=== PATIENT | female | born 1970 | race African-American/Black ===

== ENCOUNTER → 2017-07-26 | Outpatient (CLI) | payer MEDICARE, OTHER | END | disposition home or self-care (01) | LOC: KCIC 10:34 | DX: M41.86 Other forms of scoliosis, lumbar region (principal); Z90.49 Acquired absence of other specified parts of digestive tract; M25.551 Pain in right hip; M25.552 Pain in left hip | CPT/HCPCS: 72110 ==

== ENCOUNTER 2017-07-29 07:39 | Emergency (ER) | payer MEDICARE, OTHER ==
[2017-07-29] MEDS: IV NORMAL SALINE 1000ML BAG 1,000 ML IV (08:38)
[2017-07-29] MEDS: diphenhydrAMINE 50 MG/ML VIAL IVP (08:38)
[2017-07-29] MEDS: PROCHLORPERAZINE 10 MG/2 ML VIAL. IV (08:39)
[2017-07-29] MEDS: KETOROLAC 30 MG/ML INJ. IV (08:39)
[2017-07-29 08:47] LABS: BILIRUBIN,URINE NEGATIVE (NEG); CLARITY,URINE CLEAR; COLOR,URINE YELLOW; GLUCOSE,URINE NEGATIVE (NEG); NITRITE,URINE NEGATIVE (NEG); PROTEIN,URINE NEGATIVE (NEG-TRACE); UROBILINOGEN,URINE 0.2 mg/dL (0.2 mg/dL)
[2017-07-29 08:49] LABS: NEG OBC UR NEG; POS OBC UR POS; U PREG PATIENT NEGATIVE (NEG)
[2017-07-29 08:53] LABS: BACTERIA,URINE MANY /HPF (0-FEW); RBC,URINE 0 /HPF (0-2); SQUAMOUS EPITHELIAL CELL,UR MANY /LPF; WBC,URINE 0 /HPF (0-4)
== END 2017-07-29 09:54 | disposition home or self-care (01) ==
LOC: ER 07:39
DX: G43.909 Migraine, unspecified, not intractable, without status migrainosus (principal); F41.9 Anxiety disorder, unspecified; F32.9 Major depressive disorder, single episode, unspecified; M32.9 Systemic lupus erythematosus, unspecified; F43.10 Post-traumatic stress disorder, unspecified; E66.9 Obesity, unspecified; Z90.49 Acquired absence of other specified parts of digestive tract; Z90.710 Acquired absence of both cervix and uterus; Z98.84 Bariatric surgery status; Z88.1 Allergy status to other antibiotic agents; Z88.4 Allergy status to anesthetic agent; Z91.040 Latex allergy status; Z68.31 Body mass index [BMI] 31.0-31.9, adult
CPT/HCPCS: 81001; 81025; 87086; 96361; 96374; 96375; 99284-25; J0780; J1200; J1885; J7030

== ENCOUNTER → 2017-08-22 | Outpatient (CLI) | payer MEDICARE, OTHER | END | disposition home or self-care (01) | LOC: KCIC MRI 12:28 | DX: M54.16 Radiculopathy, lumbar region (principal); M41.86 Other forms of scoliosis, lumbar region | CPT/HCPCS: 72148 ==

== ENCOUNTER → 2017-09-14 | Outpatient (CLI) | payer MEDICARE, OTHER | END | disposition home or self-care (01) | LOC: PNCL 10:53 | DX: M51.16 Intervertebral disc disorders with radiculopathy, lumbar region (principal) | CPT/HCPCS: G0463 ==

== ENCOUNTER → 2017-10-01 | Outpatient (CLI) | payer MEDICARE ==
[~2017-10-01] MED LIST: IOHEXOL 180 MG/ML 10 ML VIAL.; methylPREDNISolone ACETATE 40 MG/ML VIAL.; methylPREDNISolone ACETATE 80 MG/ML VIAL.
== END ==
LOC: PNCL 10:45
DX: M51.16 Intervertebral disc disorders with radiculopathy, lumbar region (principal); J45.909 Unspecified asthma, uncomplicated; E66.9 Obesity, unspecified; Z90.710 Acquired absence of both cervix and uterus; F32.9 Major depressive disorder, single episode, unspecified; F41.9 Anxiety disorder, unspecified; Z98.890 Other specified postprocedural states
CPT/HCPCS: 62323; J1030; J1040; Q9965

== ENCOUNTER → 2017-10-24 | Outpatient (CLI) | payer MEDICARE | END | disposition home or self-care (01) | LOC: PNCL 11:57 | DX: M51.16 Intervertebral disc disorders with radiculopathy, lumbar region (principal); Z88.4 Allergy status to anesthetic agent; Z88.1 Allergy status to other antibiotic agents; Z91.040 Latex allergy status; F41.9 Anxiety disorder, unspecified; F32.9 Major depressive disorder, single episode, unspecified; Z90.710 Acquired absence of both cervix and uterus; E66.9 Obesity, unspecified; J45.909 Unspecified asthma, uncomplicated | CPT/HCPCS: 62323; J1030; J1040; Q9965 ==

== ENCOUNTER → 2017-12-27 | Outpatient (CLI) | payer MEDICARE, OTHER | END | disposition home or self-care (01) | LOC: PNCL 08:29 | DX: M51.16 Intervertebral disc disorders with radiculopathy, lumbar region (principal) | CPT/HCPCS: 99212 ==

== ENCOUNTER → 2017-12-31 | Outpatient (CLI) | payer MEDICARE | END | disposition home or self-care (01) | LOC: KCIC MRI 11:36 | DX: M48.02 Spinal stenosis, cervical region (principal); M50.123 Cervical disc disorder at C6-C7 level with radiculopathy; Z88.1 Allergy status to other antibiotic agents; Z91.040 Latex allergy status; Z88.5 Allergy status to narcotic agent; Z98.890 Other specified postprocedural states; J45.909 Unspecified asthma, uncomplicated; E66.9 Obesity, unspecified; Z90.710 Acquired absence of both cervix and uterus; M32.9 Systemic lupus erythematosus, unspecified; F41.9 Anxiety disorder, unspecified; F32.9 Major depressive disorder, single episode, unspecified; Z83.3 Family history of diabetes mellitus | CPT/HCPCS: 72141 ==

== ENCOUNTER → 2018-01-07 | Outpatient (CLI) | payer MEDICARE, OTHER ==
[~2018-01-07] MED LIST changes: +LIDOCAINE 1% PF 2 ML VIAL.
== END | disposition home or self-care (01) ==
LOC: PNCL 08:27
DX: M50.123 Cervical disc disorder at C6-C7 level with radiculopathy (principal); M51.16 Intervertebral disc disorders with radiculopathy, lumbar region; Z88.1 Allergy status to other antibiotic agents; Z91.040 Latex allergy status; Z88.5 Allergy status to narcotic agent; Z98.890 Other specified postprocedural states; J45.909 Unspecified asthma, uncomplicated; E66.9 Obesity, unspecified; Z90.710 Acquired absence of both cervix and uterus; M32.9 Systemic lupus erythematosus, unspecified; F41.9 Anxiety disorder, unspecified; F32.9 Major depressive disorder, single episode, unspecified; Z83.3 Family history of diabetes mellitus
CPT/HCPCS: 62321; J1030; J1040; Q9965

== ENCOUNTER → 2018-03-08 | Outpatient (CLI) | payer MEDICARE, OTHER ==
[2018-03-08 12:15] LABS: ADD MAN DIFF? NO
[2018-03-08 12:23] LABS: BASO % 1 % (0-3); EOS # 0.1 x10^3/uL (0.0-0.7); EOS % 3 % (0-3); HEMOGLOBIN 12.1 g/dL (12.0-15.5); LYMPH # 1.7 x10^3/uL (1.0-4.8); LYMPH % 50 % (24-48); MEAN CORPUSCULAR HEMOGLOBIN 28 pg (25-35); MEAN CORPUSCULAR HGB CONC 33 g/dL (31-37); MEAN CORPUSCULAR VOLUME 84 fL (79-100); MONO # 0.3 x10^3/uL (0.0-1.1); MONO % 9 % (0-9); NEUT # 1.3 x10^3uL (1.8-7.7); NEUT % 37 % (31-73); PLATELET COUNT 255 x10^3/uL (140-400); RED BLOOD COUNT 4.41 x10^6/uL (3.50-5.40); WHITE BLOOD COUNT 3.5 x10^3/uL (4.0-11.0)
[2018-03-08 12:41] LABS: ALBUMIN 3.5 g/dL (3.4-5.0); ALK PHOS 152 U/L (46-116); ALT (SGPT) 43 U/L (14-59); AMYLASE 42 U/L (25-115); ANION GAP 7 (6-14); AST (SGOT) 30 U/L (15-37); BLOOD UREA NITROGEN 7 mg/dL (7-20); BUN/CREATININE RATIO 9 (6-20); CALCIUM 10.2 mg/dL (8.5-10.1); CARBON DIOXIDE 28 mmol/L (21-32); CHLORIDE 107 mmol/L (98-107); CREATININE 0.8 mg/dL (0.6-1.0); GLUCOSE 81 mg/dL (70-99); LIPASE 56 U/L (73-393); POTASSIUM 3.6 mmol/L (3.5-5.1); SODIUM 142 mmol/L (136-145); TOTAL BILIRUBIN 0.4 mg/dL (0.2-1.0)
== END | disposition home or self-care (01) ==
LOC: LAB 11:57
DX: R11.2 Nausea with vomiting, unspecified (principal); G43.809 Other migraine, not intractable, without status migrainosus; F32.9 Major depressive disorder, single episode, unspecified; G43.909 Migraine, unspecified, not intractable, without status migrainosus; J45.909 Unspecified asthma, uncomplicated; Z90.710 Acquired absence of both cervix and uterus; Z90.49 Acquired absence of other specified parts of digestive tract; Z83.3 Family history of diabetes mellitus; Z88.1 Allergy status to other antibiotic agents
CPT/HCPCS: 36415; 80053; 82150; 83690; 85025

== ENCOUNTER → 2018-03-14 | Outpatient (CLI) | payer MEDICARE, OTHER ==
[2017-07-29 09:20] VITALS: BP 119/76
[~2018-03-14] MED LIST changes: +ALPR1TAB2 PO; +ALPR1TAB5 PO; +ALPR2TAB2 PO; +ATOR20TA58 PO; +ATROVENT HFA12.9 GM IH; +DICL100G18 TP; +EPIPEN 2-P0.3 MG/0.3 IJ; +ESTR2TAB PO; +FLUT1DIS3 IH; +FLUT9.9S NS; +HYDR-2766 PO; +HYDR200T71 PO; +IBUP-1060 PO; -IOHEXOL 180 MG/ML 10 ML VIAL.; +KETO120S5 TP; +LAMO200T3 PO; +LEVO5TAB29 PO; -LIDOCAINE 1% PF 2 ML VIAL.; +METH-37 PO; +MULT1TAB52 PO; +PRED1TAB3 PO; +RANI150T2 PO; +RISP1TAB43 PO; +SUMA100T3 PO; +SUMA20SP NS; +SUMA50TA3 PO; +SUVO20TA PO; +TRET20CR13 TP; +ZOLP10TA PO; +adderall; -methylPREDNISolone ACETATE 40 MG/ML VIAL.; -methylPREDNISolone ACETATE 80 MG/ML VIAL.
[2018-03-14 15:41] LABS: BILIRUBIN,URINE SMALL (NEG); CLARITY,URINE CLEAR; COLOR,URINE YELLOW; NITRITE,URINE NEGATIVE (NEG); PROTEIN,URINE NEGATIVE (NEG-TRACE)
[2018-03-14 15:49] LABS: BACTERIA,URINE MOD /HPF (0-FEW); RBC,URINE 0 /HPF (0-2); SQUAMOUS EPITHELIAL CELL,UR MOD /LPF
== END | disposition home or self-care (01) ==
LOC: LAB 14:36
PROVIDERS: ATTEND Family Medicine
DX: R10.9 Unspecified abdominal pain (principal); J45.909 Unspecified asthma, uncomplicated; K21.9 Gastro-esophageal reflux disease without esophagitis; Z90.49 Acquired absence of other specified parts of digestive tract
CPT/HCPCS: 81001; 87086

== ENCOUNTER → 2018-04-11 | Outpatient (CLI) | payer MEDICARE, OTHER ==
[2017-07-29 09:20] VITALS: BP 119/76
[~2018-04-11] MED LIST changes: +IOHEXOL 180 MG/ML 10 ML VIAL. ONE; +LIDOCAINE 2% PF 2ML VIAL. ONE; +methylPREDNISolone ACETATE 40 MG/ML VIAL. ONE; +methylPREDNISolone ACETATE 80 MG/ML VIAL. ONE
--- NOTE | 2018-04-11 13:50 | PAIN ---
DATE OF SERVICE: 04/11/2018 PROGRESS NOT FOR PAIN CLINIC DIAGNOSES: 1. Lumbar radiculopathy with lumbar degenerative disk disease. 2. Cervical radiculopathy with cervical degenerative disk disease and cervical herniated disk. HISTORY OF PRESENT ILLNESS: The patient is a 48-year-old female who returns for followup status post lumbar epidural steroid injections and cervical injections, last seen on 01/07/2018 for cervical injection. The patient reports she did very well with this with about an 80% improvement with the neck, but the pain has now returned in her low back and right lower extremity. The patient reports it is worse with walking, standing, changing positions, increased in the posterior gluteus, posterior thigh, lateral thigh, anterior thigh, medial thigh and medial lower leg with tingling, numbness, burning, shooting and sharp pain, dull and aching across the low back as well as some pain in the neck and shoulders. The patient reports her pain is an 8 on a scale of 10 at its worst, 8 on average, 6 at its least and is an 8 today. The patient reports no loss of motor function, but still significant pain and fatigability in the right leg with standing and walking. The patient reports no new motor or sensory deficits, no new bowel or bladder incontinence or other complaints. PHYSICAL EXAMINATION: VITAL SIGNS: The patient's blood pressure 121/73, pulse 52, respirations are 18, temperature 97.6 degrees Fahrenheit. Height is 5 feet 8 inches, weighs 159 pounds. GENERAL: The patient is awake, alert, oriented, appropriate, very pleasant demeanor. HEENT: Head shows normocephalic, atraumatic. Extraocular movements are intact and symmetrical. Oral cavity: Mucous membranes are moist and pink. Dentition is intact. NECK: Shows anterior throat supple without palpable lymphadenopathy noted. Swallow reflex is symmetrical. CHEST: Shows normal on inspection. Breath sounds are clear to auscultation bilaterally. HEART: Shows S1, S2 clear. No murmurs auscultated. ABDOMEN: Soft, nontender, nondistended. No palpable organomegaly is noted. No rebound or guarding demonstrated. BACK: Shows spine grossly in the midline. Normal appearing thoracic kyphosis and lumbar lordotic curvature. Lumbar paraspinous muscle shows symmetrical on inspection, on palpation shows some moderate tenderness diffusely, but only in the low lumbar distribution without radiation. The patient has good rotational motion of lumbar spine, both laterally as well as extension and flexion without difficulty. EXTREMITIES: Lower extremities show deep tendon reflexes at 1+/4 in the patellar and tendo calcaneus tendons. Motor exam is approximately 4 on a scale of 5 on the right and 5/5 on the left with dorsiflexion, extension, quadriceps and hamstring flexion. Peripheral pulses are 1+ posterior tibia. No peripheral edema is noted. Options were discussed with the patient. The patient's old chart was reviewed as her current medication regimen updated. Current review of systems updated today as well. We will proceed with a lumbar epidural steroid injection today, it is the first in this series with fluoroscopic guidance. Risks were again discussed including, but not limited to bleeding, infection, possibility of epidural hematoma, subsequent neurologic compromise, dural puncture, headaches, spinal cord and/or nerve damage, side effects of steroid medication and poor results regarding pain control. The patient understands and wished to proceed. The patient will return to the clinic in approximately 2 weeks for followup, was counseled on return appointment, activity level and side effects to be aware of. DIAGNOSIS: Lumbar radiculopathy with lumbar degenerative disk disease. PROCEDURE: Lumbar epidural steroid injection, translaminar approach at the L4-L5 level using C-arm fluoroscopic guidance under sterile prep and drape using local anesthetic. MEDICATION INJECTED: A total of 120 mg Depo-Medrol plus 10 mL of preservative-free normal saline and 2 mL of Isovue for contrast. CONDITION AT DISCHARGE: Stable. The patient tolerated the procedure well, had no complications. JUSTINA TONG MD DR: IRIS/job JOB#: [id number] / [id number]
== END | disposition home or self-care (01) ==
LOC: PNCL 09:38
PROVIDERS: ATTEND Anesthesiology
DX: M51.16 Intervertebral disc disorders with radiculopathy, lumbar region (principal); M50.10 Cervical disc disorder with radiculopathy, unspecified cervical region; Z91.040 Latex allergy status; Z88.1 Allergy status to other antibiotic agents; Z88.6 Allergy status to analgesic agent
CPT/HCPCS: 62323; J1030; J1040; J2001; Q9965

== ENCOUNTER → 2018-05-24 | Outpatient (CLI) | payer MEDICARE, OTHER ==
[2017-07-29 09:20] VITALS: BP 119/76
[~2018-05-24] MED LIST changes: +LIDOCAINE 1% PF 2 ML VIAL. ONE; -LIDOCAINE 2% PF 2ML VIAL. ONE
--- NOTE | 2018-05-25 00:06 | PAIN ---
DATE OF SERVICE: 05/24/2018 DIAGNOSES: 1. Cervical radiculopathy with cervical degenerative disk disease and cervical herniated disk. 2. Lumbar radiculopathy with lumbar degenerative disk disease. HISTORY OF PRESENT ILLNESS: The patient is a 48-year-old female who returns for followup status post lumbar epidural steroid injection x 1 on 04/11/2018. The patient did very well with about 90% improvement in her low back and right lower extremity. The patient reports pain now is in the base of the neck and shoulders, more on the left side than the right, radiating to the left upper extremity, left posterior upper arm and forearm, into the hand as well with some numbness on the left side of the neck, shoulder as well as in the arm and hand. The patient reports it is an aching, sharp, dull, tight, shooting, stabbing, numb, constant, severe, tingling and becoming more unbearable. The patient reports pain is a 9 on a scale of 10 at its worst, 9 on average, 4 at its least, and is a 9 today. The patient reports no new motor or sensory deficits, worse with using the left upper extremity, raising her hand above her head on the left side, also with daily activities even driving a car, getting dressed, putting her arm through the sleeve of a shirt or jacket. The patient reports no new motor or sensory deficits. No new bowel or bladder incontinence or other complaints. Is awakening her from sleep, variable, at least once or twice a night. PHYSICAL EXAMINATION: VITAL SIGNS: The patient's blood pressure 121/76, pulse 61, respirations 16, temperature 97.7 degrees Fahrenheit, weight is 151 pounds. GENERAL: The patient is awake, alert, oriented, appropriate, very pleasant demeanor. HEENT: Shows normocephalic, atraumatic. Extraocular movements are intact and symmetrical. Oral cavity: Mucous membranes moist and pink. Dentition is intact. NECK: Shows anterior throat supple without palpable lymphadenopathy noted. Swallow reflex is symmetrical. CHEST: Shows normal on inspection. Breath sounds are clear to auscultation bilaterally. HEART: Shows S1, S2 clear. No murmurs auscultated. ABDOMEN: Soft, nontender, nondistended. No palpable organomegaly is noted. No rebound or guarding demonstrated. BACK: Shows spine grossly in the midline. Cervical paraspinous muscle shows symmetrical on inspection. On palpation, shows some moderate tenderness bilaterally, diffusely more on the left than the right in the superomedial trapezius and left inferior cervical paraspinous musculature, but appears symmetrical. No specific trigger points, no radiation of pain is demonstrated. No atrophy or hypertrophy is demonstrated. The patient shows good rotational motion of cervical spine, although somewhat guarded. She has full rotation past 45 degrees right and left as well as full extension, full forward flexion with slow deliberate rotation. EXTREMITIES: Upper extremities show deep tendon reflexes at 2+ in the biceps, triceps tendons. Motor exam is approximately 3-4 on a scale of 5 on the left and is 5/5 on the right. Bicep and tricep flexion 4/5 left, 5/5 right. Peripheral pulses are 2+ radial distribution. No peripheral edema is noted. Options were discussed with the patient. The patient's old chart was reviewed as is her current medication regimen updated. Current review of systems is updated today as well and we will proceed with the cervical epidural steroid injection today with fluoroscopic guidance. Risks were again discussed including, but not limited to bleeding, infection, possibility of epidural hematoma, subsequent neurological compromise, dural puncture, headaches, spinal cord and/or nerve damage, side effects of steroid medication and poor results regarding pain control. The patient understands and wished to proceed. The patient will return to the clinic in approximately 2 weeks for followup, was counseled on return appointment, activity level, and side effects to be aware of. DIAGNOSIS: Cervical radiculopathy with cervical degenerative disk disease and cervical herniated disk. PROCEDURE: Cervical epidural steroid injection, translaminar approach C6-C7 level using C-arm fluoroscopic guidance under sterile prep and drape using local anesthetic. MEDICATION INJECTED: A total of 120 mg Depo-Medrol plus 5 mL of preservative-free normal saline and 2 mL of Isovue for contrast. CONDITION AT DISCHARGE: Stable. The patient tolerated the procedure well, had no complications. JUSTINA TONG MD DR: IRIS/job JOB#: [id number] / [id number]
== END | disposition home or self-care (01) ==
LOC: PNCL 08:46
PROVIDERS: ATTEND Anesthesiology
DX: M50.123 Cervical disc disorder at C6-C7 level with radiculopathy (principal); M51.16 Intervertebral disc disorders with radiculopathy, lumbar region; Z88.6 Allergy status to analgesic agent; Z88.1 Allergy status to other antibiotic agents; Z91.040 Latex allergy status; Z79.899 Other long term (current) drug therapy
CPT/HCPCS: 62321; J1030; J1040; Q9965; 62323

== ENCOUNTER → 2018-05-27 | Outpatient (CLI) | payer MEDICARE, OTHER ==
[2017-07-29 09:20] VITALS: BP 119/76
[~2018-05-27] MED LIST changes: -IOHEXOL 180 MG/ML 10 ML VIAL. ONE; -LIDOCAINE 1% PF 2 ML VIAL. ONE; -methylPREDNISolone ACETATE 40 MG/ML VIAL. ONE; -methylPREDNISolone ACETATE 80 MG/ML VIAL. ONE
--- NOTE | 2018-05-27 12:39 | KCIC ---
CT HEAD WO CONTRAST History: Acute hearing loss of the left ear, balance problems for one month Comparison: May 01, 2015 Technique: Noncontrast CT imaging was performed of the head. Exposure: One or more of the following individualized dose reduction techniques were utilized for this examination: 1. Automated exposure control 2. Adjustment of the mA and/or kV according to patient size 3. Use of iterative reconstruction technique. Findings: No acute extra-axial or parenchymal hemorrhage is identified. There is no significant intra-axial mass effect, midline shift, or extra-axial fluid collection. The king-white differentiation of the major vascular territories is preserved. The ventricles, sulci, and cisterns are within normal limits in size and configuration. There is new partial opacification of left mastoid air cells. There is likely mild nonspecific density of the left middle air cavity. No acute calvarial abnormality is identified. There is small air-fluid level of the visualized right maxillary sinus. There have been nasoantral windows bilaterally. Sinuses are not fully evaluated. Impression: 1. No acute intracranial abnormality is identified. 2. There is new partial opacification left mastoid air cells of uncertain sterility, also nonspecific mild density of the left middle air cavity which could be seen with otitis media. 3. There is a small air-fluid level of the visualized right maxillary sinus which could be due to acute sinusitis, sinuses not fully evaluated. Electronically signed by: Zackary Chacon MD (05/27/2018 12:36 PM) [email or web address]
== END | disposition home or self-care (01) ==
LOC: KCIC CT 11:14
PROVIDERS: ATTEND Family Medicine
DX: H91.92 Unspecified hearing loss, left ear (principal)
CPT/HCPCS: 70450

== ENCOUNTER → 2018-06-14 | Outpatient (CLI) | payer MEDICARE, OTHER ==
[2017-07-29 09:20] VITALS: BP 119/76
[~2018-06-14] MED LIST changes: +IOHEXOL 180 MG/ML 10 ML VIAL. ONE; +LIDOCAINE 1% PF 2 ML VIAL. ONE; +methylPREDNISolone ACETATE 40 MG/ML VIAL. ONE; +methylPREDNISolone ACETATE 80 MG/ML VIAL. ONE
--- NOTE | 2018-06-14 20:15 | PAIN ---
DATE OF SERVICE: 06/14/2018 PROGRESS NOTE FOR PAIN CLINIC DIAGNOSES: 1. Lumbar radiculopathy with lumbar degenerative disk disease. 2. Cervical radiculopathy with cervical degenerative disk disease. HISTORY OF PRESENT ILLNESS: This patient is a 48-year-old female who returns for followup status post cervical epidural steroid injection each x 1. The patient reports she did very well with her cervical injection about 40% improvement. The main complaint is pain in the low back and right lower extremity at this time. The patient reports her pain is a 9 on a scale of 10 at its worst, 7 on average, 3 at its least and is a 7 today. The patient reports it is stabbing, sharp, tight, constant; becoming more severe, radiating to the lateral anterior thigh, anterior medial thigh, medial anterior lower leg as well as the anterior medial knee and into the foot. The patient reports it as a sharp and tight stabbing, becoming severe, more constant, aching; worse with walking, standing, changing positions; better with sitting or lying down. It awakens her from sleep but only about every 5 hours. The patient reports no new motor or sensory deficits and no new bowel or bladder incontinence. PHYSICAL EXAMINATION: VITAL SIGNS: The patient's blood pressure 110/76, pulse 78, respirations 18 and temperature 98.0 degrees Fahrenheit. Height is 5 feet 8 inches and weighs 143 pounds. GENERAL: The patient is awake, alert, oriented, appropriate and very pleasant demeanor. HEENT: Head shows normocephalic and atraumatic. Extraocular movements are intact and symmetrical. Oral cavity: Mucous membranes moist and pink. Dentition is intact. NECK: Shows anterior throat supple without palpable lymphadenopathy noted. Swallow reflex is symmetrical. CHEST: Shows normal on inspection. Breath sounds clear to auscultation bilaterally. HEART: Shows S1 and S2 clear. No murmurs auscultated. ABDOMEN: Soft, nontender and nondistended. No palpable organomegaly is noted. No rebound or guarding demonstrated. BACK: Shows spine grossly in the midline. Normal appearing thoracic kyphosis and lumbar lordotic curvature. Lumbar paraspinous muscle shows symmetrical on inspection, with palpation shows moderate tenderness but only diffusely bilaterally without radiation. Good rotational motion both laterally as well as extension and flexion without difficulty. EXTREMITIES: The patient's lower extremities show deep tendon reflexes 2+ in the patellar, 1+ tendo-calcaneus tendons. Motor exam is approximately 3-4/5 on the right dorsiflexion, extension and 5/5 on the left. Peripheral pulses are 1+ posterior tibial. No peripheral edema is noted. Options were discussed with the patient. The patient's old chart was reviewed as well as her current medication regimen updated. Current review of systems updated today as well. We will proceed with a third in the series total lumbar epidural steroid injection today with fluoroscopic guidance. Risks were again discussed including, but not limited to bleeding, infection, possibility of epidural hematoma, subsequent neurological compromise, dural puncture headache, spinal cord and/or nerve damage, side effects of steroid medication and poor results regarding pain control. The patient understands and wished to proceed. The patient will return to the clinic in approximately 2 weeks for followup, was counseled as to return appointment, activity level and side effects to be aware of. DIAGNOSIS: Lumbar radiculopathy with lumbar degenerative disk disease. PROCEDURE: Lumbar epidural steroid injection, translaminar approach, L4-L5 level using C-arm fluoroscopic guidance under sterile prep and drape using local anesthetic. MEDICATION INJECTED: A total of 120 mg Depo-Medrol plus 10 mL of preservative-free normal saline and 2 mL of Isovue for contrast. CONDITION AT DISCHARGE: Stable. The patient tolerated the procedure well and had no complications. JUSTINA TONG MD DR: IRIS/job JOB#: [id number] / [id number]
== END | disposition home or self-care (01) ==
LOC: PNCL 09:26
PROVIDERS: ATTEND Anesthesiology
DX: M51.16 Intervertebral disc disorders with radiculopathy, lumbar region (principal); M50.10 Cervical disc disorder with radiculopathy, unspecified cervical region; Z88.1 Allergy status to other antibiotic agents; Z88.6 Allergy status to analgesic agent; Z91.040 Latex allergy status
CPT/HCPCS: 62323; J1030; J1040; Q9965

== ENCOUNTER → 2018-08-09 | Outpatient (CLI) | payer MEDICARE, OTHER ==
[2017-07-29 09:20] VITALS: BP 119/76
[~2018-08-09] MED LIST changes: -HYDR-2766 PO; +HYDR-2769 PO; -IOHEXOL 180 MG/ML 10 ML VIAL. ONE; -LIDOCAINE 1% PF 2 ML VIAL. ONE; -methylPREDNISolone ACETATE 40 MG/ML VIAL. ONE; -methylPREDNISolone ACETATE 80 MG/ML VIAL. ONE
[2018-08-09 12:31] LABS: ALBUMIN 3.4 g/dL (3.4-5.0); ALBUMIN/GLOBULIN RATIO 0.8 (1.0-1.7); CALCIUM 9.9 mg/dL (8.5-10.1); CREATININE 0.7 mg/dL (0.6-1.0); GFR 108.1; POTASSIUM 4.4 mmol/L (3.5-5.1); TOTAL BILIRUBIN 0.3 mg/dL (0.2-1.0); TOTAL PROTEIN 7.5 g/dL (6.4-8.2)
--- NOTE | 2018-08-09 13:28 | RAD ---
EXAM: Sacrum and coccyx, 3 views; sacroiliac joints, 3 views. HISTORY: Pain after lifting. COMPARISON: None. FINDINGS: 3 views of the sacrum and coccyx and sacroiliac joints are obtained. There is sacralization of the right transverse process of a transitional lumbosacral segment, resulting in articulation with the underlying sacrum. This is a normal variant. There is no fracture. There is facet arthropathy at the lower lumbar levels. There are multiple pelvic phleboliths. There is mild subchondral sclerosis involving the sacroiliac joints. IMPRESSION: 1. No acute osseous finding. 2. Sacralization of the right aspect of a transitional lumbosacral segment, resulting in articulation with the sacrum. This is a normal variant. 2. Minimal degenerative change involving the sacroiliac joints. Electronically signed by: Ellen Franco MD (08/09/2018 1:23 PM) [email or web address]
== END | disposition home or self-care (01) ==
LOC: RAD 11:44
PROVIDERS: ATTEND Family Medicine
DX: M43.27 Fusion of spine, lumbosacral region (principal); M47.898 Other spondylosis, sacral and sacrococcygeal region; M12.88 Other specific arthropathies, not elsewhere classified, other specified site; I87.8 Other specified disorders of veins
CPT/HCPCS: 36415; 72202; 72220; 80053

== ENCOUNTER → 2018-09-10 | Outpatient (CLI) | payer MEDICARE ==
[2017-07-29 09:20] VITALS: BP 119/76
--- NOTE | 2018-09-10 12:49 | KCIC ---
EXAM: Abdomen and pelvis CT without contrast. HISTORY: Abnormal liver function laboratory values. Hypercalcemia. Pain. Nausea and vomiting. TECHNIQUE: Computed tomographic images of the abdomen and pelvis were obtained without contrast. *One or more of the following individualized dose reduction techniques were utilized for this examination: 1. Automated exposure control. 2. Adjustment of the mA and/or kV according to patient size. 3. Use of iterative reconstruction technique. COMPARISON: 03/15/2014. FINDINGS: Evaluation of the lower thorax is unremarkable. There is a tiny amount of anterior pericardial fluid. There are postoperative changes involving the stomach. The gallbladder is surgically absent. There is common bile duct dilatation, likely due to reservoir effect status post cholecystectomy. No suspicious hepatic lesion is seen on this exam. There is suggestion of focal dilatation of the downstream pancreatic duct, possibly due to volume averaging. No focal pancreatic lesion is seen on this noncontrast exam. The spleen is normal in size. The adrenal glands and kidneys are unremarkable. There is no appendicitis. There is moderate colonic stool. There is no evidence of bowel obstruction. There is no free air. There are multiple pelvic phleboliths. The urinary bladder is unremarkable. There is no lymphadenopathy. There is periumbilical skin thickening which may be due to edema or induration. There are degenerative changes involving the spine. The right L5 transverse process is sacralized and articulates with the underlying sacrum, a normal variant. IMPRESSION: 1. No acute abdominal or pelvic finding. Evaluation is limited due to the absence of contrast. 2. Prominent downstream pancreatic duct, possibly due to focal dilatation or volume averaging. There is also a prominent common bile duct which may be due to reservoir effect status post cholecystectomy. 3. Postoperative changes involving the stomach. 4. Moderate colonic stool. Electronically signed by: Ellen Franco MD (09/10/2018 12:46 PM) [id number]
== END | disposition home or self-care (01) ==
LOC: KCIC CT 11:12
PROVIDERS: ATTEND Family Medicine
DX: E83.52 Hypercalcemia (principal); R79.89 Other specified abnormal findings of blood chemistry; M43.26 Fusion of spine, lumbar region; Z98.890 Other specified postprocedural states; Z90.49 Acquired absence of other specified parts of digestive tract
CPT/HCPCS: 74176

== ENCOUNTER → 2018-10-31 | Outpatient (CLI) | payer OTHER, MEDICARE ==
[~2018-10-31] MED LIST changes: +IOHEXOL 180 MG/ML 10 ML VIAL. ONE; +methylPREDNISolone ACETATE 40 MG/ML VIAL. ONE; +methylPREDNISolone ACETATE 80 MG/ML VIAL. ONE
--- NOTE | 2018-11-01 00:26 | PAIN ---
DATE OF SERVICE: 10/31/2018 PROGRESS NOTE FOR PAIN CLINIC DIAGNOSIS: Lumbar radiculopathy with lumbar degenerative disk disease. HISTORY OF PRESENT ILLNESS: The patient is a 48-year-old female who returns for followup status post lumbar epidural steroid injections, most recently on 06/14/2018. The patient did very well with this but 90% improvement initially. Now the pain has returned and is down to about 10% improvement overall but still pain in the low back, right lower extremity as it was previously. The patient reports the pain is returning with activity, standing, walking, changing positions, better with sitting or lying down but awakens her from sleep about 3-4 times a night if she lays on her right side. The patient reports the pain is a 10 on scale of 10 at its worst, 7 on average, 3 at its least and is a 3 today. The patient reports it is aching, sharp, dull, tight, shooting, cramping into the right lower extremity, posterior gluteus, posterolateral thigh, lateral anterior thigh, anterior medial thigh, medial and anterior lower leg to the ankle on the right side. The patient reports it is becoming more constant, more severe and more unbearable with walking and standing. The patient reports no new motor or sensory deficits and no new bowel or bladder incontinence or other complaints. Initially, she is doing better with this as walking, doing activities at home and traveling with greater ease but the pain again returning now in the low back and right side. PHYSICAL EXAMINATION: VITAL SIGNS: The patient's blood pressure 122/81, pulse 65, respirations 18, temperature 98.4 degrees Fahrenheit. Height is 5 feet 8 inches and weighs 137 pounds. GENERAL: The patient is awake, alert, oriented, appropriate and very pleasant demeanor. HEENT: Head shows normocephalic and atraumatic. Extraocular movements are intact and symmetrical. Oral cavity: Mucous membranes moist and pink. Dentition is intact. NECK: Shows anterior throat supple without palpable lymphadenopathy noted. Swallow reflex symmetrical. CHEST: Shows normal on inspection. Breath sounds clear to auscultation bilaterally. HEART: Shows S1 and S2 clear. No murmurs auscultated. ABDOMEN: Soft, nontender and nondistended. No palpable organomegaly is noted. No rebound or guarding demonstrated. BACK: Shows spine grossly in the midline. Normal-appearing thoracic kyphosis and minor flattening of the lumbar lordotic curvature. Lumbar paraspinous muscle shows symmetrical on inspection, with palpation shows some moderate tenderness but only diffusely without radiation of the lumbar paraspinous muscles in the low lumbar distribution. The patient has good rotational motion of the lumbar spine, both laterally as well as extension and flexion without difficulty. EXTREMITIES: The patient's lower extremities show deep tendon reflexes at 2+ in the patellar, 1+ tendo-calcaneus tendons. Motor exam is approximately 4 on a scale of 5 on the right, 5/5 on the left dorsiflexion and extension. Peripheral pulses are 1+ posterior tibial. No peripheral edema is noted bilaterally. Options were discussed with the patient. The patient's old chart was reviewed as well as her current medication regimen updated. Current review of systems updated today as well. We will proceed with a lumbar epidural steroid injection today, the first in this series with fluoroscopic guidance. Risks were again discussed including, but not limited to bleeding, infection, possibility of epidural hematoma, subsequent neurological compromise, dural puncture, headaches, spinal cord and/or nerve damage, side effects of steroid medication and poor results regarding pain control. The patient understands and wished to proceed. The patient will return to the clinic in approximately 2 weeks for followup, was counseled as to return appointment, activity level and side effects to be aware of. DIAGNOSIS: Lumbar radiculopathy with lumbar degenerative disk disease. PROCEDURE: Lumbar epidural steroid injection, translaminar approach L4-L5 level using C-arm fluoroscopic guidance under sterile prep and drape using local anesthetic. MEDICATION INJECTED: A total of 120 mg Depo-Medrol plus 10 mL of preservative-free normal saline and 2 mL of contrast. CONDITION AT DISCHARGE: Stable. The patient tolerated the procedure well and had no complications. JUSTINA TONG MD DR: IRIS/job JOB#: [id number] / [id number]
== END | disposition home or self-care (01) ==
LOC: MERGE 08:39 → EDBD 08:39 → PNCL 08:39
PROVIDERS: ATTEND Anesthesiology
DX: M51.16 Intervertebral disc disorders with radiculopathy, lumbar region (principal); Z88.1 Allergy status to other antibiotic agents; Z88.6 Allergy status to analgesic agent; Z91.040 Latex allergy status
CPT/HCPCS: 62323; J1030; J1040; Q9965

== ENCOUNTER → 2018-11-27 | Outpatient (CLI) | payer OTHER, MEDICARE ==
[2017-07-29 09:20] VITALS: BP 119/76
[~2018-11-27] MED LIST changes: -IOHEXOL 180 MG/ML 10 ML VIAL. ONE; -methylPREDNISolone ACETATE 40 MG/ML VIAL. ONE; -methylPREDNISolone ACETATE 80 MG/ML VIAL. ONE
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
== END | disposition home or self-care (01) ==
LOC: KCIC MRI 11:07
PROVIDERS: ATTEND Anesthesiology
DX: M50.123 Cervical disc disorder at C6-C7 level with radiculopathy (principal); M25.78 Osteophyte, vertebrae; M47.22 Other spondylosis with radiculopathy, cervical region; Z88.1 Allergy status to other antibiotic agents; Z88.6 Allergy status to analgesic agent; Z91.040 Latex allergy status
CPT/HCPCS: 72141

== ENCOUNTER → 2018-11-27 | Outpatient (CLI) | payer OTHER, MEDICARE ==
[2017-07-29 09:20] VITALS: BP 119/76
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
== END | disposition home or self-care (01) ==
LOC: PNCL 08:40
PROVIDERS: ATTEND Anesthesiology
DX: M51.16 Intervertebral disc disorders with radiculopathy, lumbar region (principal); M50.10 Cervical disc disorder with radiculopathy, unspecified cervical region
CPT/HCPCS: G0463

== ENCOUNTER → 2019-01-03 | Outpatient (CLI) | payer MEDICARE, OTHER ==
[2017-07-29 09:20] VITALS: BP 119/76
== END | disposition home or self-care (01) ==
LOC: LAB 12:10
PROVIDERS: ATTEND Psychiatry & Neurology Neurology with Special Qualifications in Child Neurology
DX: G43.719 Chronic migraine without aura, intractable, without status migrainosus (principal); Z91.040 Latex allergy status; Z88.8 Allergy status to other drugs, medicaments and biological substances
CPT/HCPCS: 36415; 85651

== ENCOUNTER → 2019-01-15 | Outpatient (CLI) | payer OTHER, MEDICARE ==
[2017-07-29 09:20] VITALS: BP 119/76
[~2019-01-15] MED LIST changes: +IOHEXOL 180 MG/ML 10 ML VIAL. ONE; +methylPREDNISolone ACETATE 40 MG/ML VIAL. ONE; +methylPREDNISolone ACETATE 80 MG/ML VIAL. ONE
--- NOTE | 2019-01-15 19:55 | PAIN ---
DATE OF SERVICE: 01/15/2019 PROGRESS NOTE FOR PAIN CLINIC DIAGNOSES: 1. Lumbar radiculopathy with lumbar degenerative disk disease. 2. Cervical radiculopathy with cervical degenerative disk disease and cervical herniated disk. HISTORY OF PRESENT ILLNESS: The patient is a 48-year-old female who returns for followup status post cervical epidural steroid injection x 1. The patient reports about 50% improvement overall until last about 4 days, the pain began to return at the base of the neck and shoulders, worse on the right than the left, radiating to the right upper extremity, anterior biceps, lateral biceps and deltoid as well as the forearm with some numbness and tingling in the bilateral shoulders and hand on the right. The patient reports it is 10 on a scale of 10 at its worst over the past week, 10 on average, 5 at its least and is 10 today. The patient reports it is tingling, burning, shooting, cramping, dull and aching in the base of the neck and shoulder. The patient reports no new motor or sensory deficits, no new bowel or bladder incontinence. Initially, she was doing better with distance walking, doing household activities with greater ease and comfort, using her upper extremities with greater ease as well, but now the pain is returning. PHYSICAL EXAMINATION: VITAL SIGNS: The patient's blood pressure is 115/77, pulse 65, respirations 16, temperature 98.3 degrees Fahrenheit, height is 5 feet 8 inches and weight is 138 pounds. GENERAL: The patient is awake, alert, oriented, appropriate, very pleasant demeanor. HEENT: Head is normocephalic, atraumatic. Extraocular movements intact and symmetrical. Oral cavity: Mucous membranes moist and pink. Dentition is intact. NECK: Shows anterior throat supple without palpable lymphadenopathy noted. Swallow reflex symmetrical. CHEST: Shows normal with inspection. Breath sounds clear to auscultation bilaterally. HEART: Shows S1, S2 clear. ABDOMEN: Soft, nontender, nondistended. BACK: Shows spine grossly in the midline. Cervical paraspinous muscle shows symmetrical on inspection. On palpation shows some moderate tenderness diffusely in the inferior aspect of the cervical paraspinous muscles, more on the right than the left with very firm rope-like musculature in the right trapezius superiorly and laterally, but not on the left side. No radiation is demonstrated with palpation. EXTREMITIES: The patient's upper extremities show deep tendon reflexes 2+ in the biceps and triceps tendons. 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 Peripheral pulses are 2+ radial distribution. No peripheral edema is noted bilaterally. Options were discussed with the patient. The patient's old chart was reviewed, medication regimen updated, current review of systems updated today as well. We will proceed with a second in this series of cervical epidural steroid injection today with fluoroscopic guidance. Risks were again discussed including, but not limited to bleeding, infection, possibility of epidural hematoma, subsequent neurologic compromise, dural puncture, headaches, spinal cord and/or nerve damage, side effects of steroid medication and poor results regarding pain control. The patient understands and wished to proceed. The patient will return to the clinic in approximately 2 weeks for followup, was counseled on return appointment, activity level and side effects to be aware of. DIAGNOSIS: 1. Cervical radiculopathy with cervical degenerative disk disease. 2. Cervical herniated disk. PROCEDURE: Cervical epidural steroid injection, translaminar approach C6-C7 level using C-arm fluoroscopic guidance under sterile prep and drape using local anesthetic. MEDICATION INJECTED: A total of 120 mg Depo-Medrol plus 5 mL of preservative-free normal saline and 2 mL pf contrast. CONDITION AT DISCHARGE: Stable. The patient tolerated the procedure well, had no complications. JUSTINA TONG MD DR: IRIS/job JOB#: [id number] / [id number]
== END ==
LOC: PNCL 08:34
PROVIDERS: ATTEND Anesthesiology
DX: M50.123 Cervical disc disorder at C6-C7 level with radiculopathy (principal); M51.16 Intervertebral disc disorders with radiculopathy, lumbar region
CPT/HCPCS: 62321; J1030; J1040; Q9965

== ENCOUNTER → 2019-05-22 | Outpatient (CLI) | payer OTHER, MEDICARE ==
[2017-07-29 09:20] VITALS: BP 119/76
[~2019-05-22] MED LIST changes: +BUPIVACAINE MPF 0.25% 10 ML VIAL. ONE; +CYCL10TA2 PO; -IOHEXOL 180 MG/ML 10 ML VIAL. ONE; -methylPREDNISolone ACETATE 80 MG/ML VIAL. ONE
--- NOTE | 2019-05-22 12:41 | PAIN ---
DATE OF SERVICE: 05/22/2019 PROGRESS NOTE FOR PAIN CLINIC DIAGNOSES: 1. Cervical radiculopathy with cervical degenerative disk disease. 2. Lumbar radiculopathy with lumbar degenerative disk disease, lumbar herniated disc. 3. Myofascial pain. HISTORY OF PRESENT ILLNESS: The patient is a 49-year-old female who returns for followup status post cervical epidural steroid injections x 2 and lumbar injection x 1 since October of this year. The patient reports she did very well with each of these with about 75-80% improvement after the last injection. The patient reports no new motor or sensory deficits. Still some significant pain in the base of the neck and shoulders bilaterally. The patient reports it is getting worse with time, without specific radiation, noticeable with activity, standing, walking, using her upper extremities. She had some Botox injections, which were not especially helpful with the areas of the base of the neck and shoulders. The patient reports the pain now is aching and dull, tight, shooting, sharp in the bilateral upper extremities, base of the neck causing headaches, cramping, constant, severe in the shoulders and upper back as well as the back of the neck, also has pain in the low back and the right lower extremity and hip. The patient reports the pain is a 10 on a scale of 10 at its worst over the past week, 6 on average, 4 at its least and is a 6 today. The patient reports no new motor or sensory deficits, no new bowel or bladder incontinence or other complaints. PHYSICAL EXAMINATION: VITAL SIGNS: The patient's blood pressure 119/75, pulse 67, respirations are 16, temperature 97.3 degrees Fahrenheit, height is 5 feet 8 inches, weight is 154 pounds. GENERAL: The patient is awake, alert, oriented, appropriate, very pleasant demeanor. HEENT: Head shows normocephalic and atraumatic. Extraocular movements are intact and symmetrical. Oral cavity: Mucous membranes moist and pink. Dentition is intact. NECK: Shows anterior throat supple without palpable lymphadenopathy noted. Swallow reflex symmetrical. CHEST: Shows normal on inspection. Breath sounds clear bilaterally. HEART: Shows S1, S2 clear. No murmurs auscultated. ABDOMEN: Soft, nontender, nondistended. BACK: Shows spine grossly in the midline. Cervical paraspinous muscle shows symmetrical on inspection with normal cervical lordotic curvature with palpation shows some very firm rope-like musculature in the middle and lower distribution of the cervical paraspinous musculature, also into the trapezius musculature bilaterally, slightly worse on the left than the right, but present bilaterally with very firm rope-like musculature, very tender with palpation, but without specific radiation. This is true into the rhomboid musculature as well as the upper thoracic paraspinous musculature on the right greater than the left, very firm rope-like musculature as well without specific radiation, but very tender with palpation. EXTREMITIES: Upper extremities show deep tendon reflexes 2+ in the biceps and triceps tendons. Motor exam is approximately 4 on a scale of 5 on the right and 5/5 on the left with environmental lead strength, bicep and tricep flexion. Peripheral pulses are 2+ n the radial distribution. No peripheral edema is noted bilaterally. Options were discussed with the patient. The patient's old chart was reviewed as her current medication regimen updated. Current review of systems updated today as well. We will proceed with trigger point injections of the identified musculature. Risks were again discussed including, but not limited to bleeding, infection, possibility of intravascular injection sequelae, spread of local anesthetic and numbness, pneumothorax, side effects of steroid medication and poor results regarding pain control. The patient understands and wished to proceed. The patient will return to clinic in approximately 2 weeks for followup. She was counseled on return appointment, activity level and side effects to be aware of. DIAGNOSIS: Myofascial pain. PROCEDURE: Bilateral trigger point injections, bilateral cervical paraspinous musculature, bilateral trapezius musculature, bilateral thoracic paraspinous musculature under sterile prep and drape using local anesthetic. MEDICATION INJECTED: A total of 40 mg Depo-Medrol plus total of 12 mL of 0.25% bupivacaine after negative aspiration at each injection site. CONDITION AT DISCHARGE: Stable. The patient tolerated the procedure well, had no complications. JUSTINA TONG MD DR: IRIS/job JOB#: [id number] / [id number]
== END ==
LOC: PNCL 11:28
PROVIDERS: ATTEND Anesthesiology
DX: M79.18 Myalgia, other site (principal); M50.10 Cervical disc disorder with radiculopathy, unspecified cervical region; M51.16 Intervertebral disc disorders with radiculopathy, lumbar region
CPT/HCPCS: 20553; J1030; J3490

== ENCOUNTER → 2019-07-11 | Outpatient (CLI) | payer OTHER, MEDICARE ==
[2017-07-29 09:20] VITALS: BP 119/76
[~2019-07-11] MED LIST changes: +ASPI-630 PO; -BUPIVACAINE MPF 0.25% 10 ML VIAL. ONE; +IOHEXOL 180 MG/ML 10 ML VIAL. ONE; +methylPREDNISolone ACETATE 80 MG/ML VIAL. ONE
--- NOTE | 2019-07-11 12:45 | PAIN ---
DATE OF SERVICE: 07/11/2019 PROGRESS NOTE FOR PAIN CLINIC DIAGNOSES: 1. Lumbar radiculopathy with lumbar degenerative disk disease. 2. Cervical radiculopathy with cervical degenerative disk disease and cervical herniated disk. 3. Myofascial pain. HISTORY OF PRESENT ILLNESS: The patient is a 49-year-old female who returns for followup status post both cervical and lumbar epidural steroid injection as well as trigger point injections in the past, most recently trigger point injections on 05/22. The patient reports the pain is increasing now in the low back and right lower extremity significantly radiating to posterior gluteus, posterolateral thigh, lateral anterior thigh, anterior medial thigh, medial lower leg and lateral lower leg, much worse over the past few weeks without any specific injury or accident. The patient reports it is increasing with walking, standing, changing positions, is waking her from sleep at night. The patient rates it as 10 on a scale of 10 at its worst 8-9 on average and a 9 at its least and is 8 today. The patient reports no new motor or sensory deficits, no new bowel or bladder incontinence, still significant pain described as aching, burning, shooting, tight, stabbing, radiating, coming constant and more severe. PHYSICAL EXAMINATION: VITAL SIGNS: The patient's blood pressure 117/79, pulse 76, respirations 16, temperature is 98.3 degrees Fahrenheit, height is 5 feet 8 inches, weight is 154 pounds. GENERAL: The patient is awake, alert, oriented, appropriate, very pleasant demeanor. HEENT: Head shows normocephalic, atraumatic. Extraocular movements are intact and symmetrical. Oral cavity shows mucous membranes moist and pink. Dentition is intact. NECK: Shows anterior throat supple without palpable lymphadenopathy noted. Swallow reflex symmetrical. CHEST: Shows normal on inspection. Breath sounds are clear bilaterally. HEART: Shows S1, S2 clear. ABDOMEN: Soft, nontender, nondistended. BACK: Shows spine grossly in the midline. Lumbar paraspinous muscle shows symmetrical on inspection, with palpation shows some moderate tenderness diffusely bilaterally with normal appearing lordotic curvature. No trigger points, no radiation of pain. The patient has good rotational motion of lumbar spine, both laterally as well as extension and flexion without significant increase in pain. EXTREMITIES: The patient's lower extremities show deep tendon reflexes at 2+ in the patellar, 1+ tendo-calcaneus tendons. Motor exam is approximately 4 on a scale of 5 on the right, 5/5 on the left. Peripheral pulses are 1+ posterior tibia. No peripheral edema is noted. Options were discussed with the patient. The patient's old chart was reviewed as her current medication regimen updated. Current review of systems updated today as well. We will proceed with a lumbar epidural steroid injection today with fluoroscopic guidance. Risks were again discussed including, but not limited to bleeding, infection, possibility of epidural hematoma, subsequent neurological compromise, dural puncture, headaches, spinal cord and/or nerve damage, side effects of steroid medication and poor results regarding pain control. The patient understands and wished to proceed. The patient will return to clinic in approximately 2 weeks for followup. Also, wishes to have a neurosurgical evaluation. We discussed this in the past with her as she is still having significant pain in the right lower extremity and some weakness. We will get a new MRI scan of her lumbar spine as this has been more than 6 months since her last one for neurosurgical evaluation and make those arrangements. DIAGNOSES: Lumbar radiculopathy with lumbar degenerative disk disease. PROCEDURE: Lumbar epidural steroid injection, translaminar approach, L4-L5 level using C-arm fluoroscopic guidance under sterile prep and drape using local anesthetic. MEDICATION INJECTED: A total of 120 mg Depo-Medrol plus 10 mL of preservative-free normal saline and 2 mL of contrast. CONDITION AT DISCHARGE: Stable. The patient tolerated the procedure well, had no complications. JUSTINA TONG MD DR: IRIS/job JOB#: [id number] / [id number]
== END ==
LOC: PNCL 11:34
PROVIDERS: ATTEND Anesthesiology
DX: M51.16 Intervertebral disc disorders with radiculopathy, lumbar region (principal); M50.10 Cervical disc disorder with radiculopathy, unspecified cervical region; M79.18 Myalgia, other site
CPT/HCPCS: 62323; J1030; J1040; Q9965

== ENCOUNTER → 2019-07-18 | Outpatient (CLI) | payer MEDICARE, OTHER ==
[2017-07-29 09:20] VITALS: BP 119/76
[~2019-07-18] MED LIST changes: -IOHEXOL 180 MG/ML 10 ML VIAL. ONE; -methylPREDNISolone ACETATE 40 MG/ML VIAL. ONE; -methylPREDNISolone ACETATE 80 MG/ML VIAL. ONE
--- NOTE | 2019-07-18 13:55 | KCIC ---
MRI Lumbar Spine without contrast History: Right lumbar radiculopathy, chronic low back pain Technique: Multiplanar, multi sequential noncontrast MR imaging was performed of the lumbar spine. Comparison: August 22, 2017 Findings: There is some motion degradation. There again appears to be transitional anatomy. For the purpose of this report, most inferior formed although rudimentary intervertebral disc space is again considered L5-S1, assumption of 5 lumbar type vertebral bodies. Lumbar vertebral body stature is maintained. Conus terminates at T12-L1. AP alignment is within normal limits. There is mild disc desiccation L3-4 and L4-5, intervertebral disc spaces otherwise maintained. L1-L2: This level was not included on the axial images. Neural foramina and spinal canal are adequate. L2-L3: Neural foramina and spinal canal are adequate. There is minimal buckling of the ligamentum flavum. There is negligible disc osteophyte complex. L3-L4: There is minimal buckling of the ligamentum flavum. There is negligible disc osteophyte complex and bulge. Spinal canal is adequate. There is again mild neural foramina compromise bilaterally from disc osteophyte complex. L4-L5: There is a minimal bulge. There is mild buckling of the ligamentum flavum. There is mild facet degenerative change. There is again [id number] narrowing of the left neural foramen by facet and disc osteophyte complex, mild narrowing on the right. L5-S1: Spinal canal and neural foramina are adequate. Impression: 1. There is again transitional anatomy of the lumbar spine, most inferior formed although rudimentary intervertebral disc space again considered L5-S1. There is no new significant lumbar spinal stenosis. There is [id number] narrowing of the left L4-5 neural foramen, minimal narrowing on the right at L4-5 and bilaterally at L3-4 as described. Electronically signed by: Zackary Chacon MD (07/18/2019 1:52 PM) [id number]
== END ==
LOC: KCIC MRI 13:12
PROVIDERS: ATTEND Anesthesiology
DX: M54.16 Radiculopathy, lumbar region (principal); M48.061 Spinal stenosis, lumbar region without neurogenic claudication
CPT/HCPCS: 72148

== ENCOUNTER → 2019-09-01 | Outpatient (CLI) | payer MEDICARE, OTHER ==
[2017-07-29 09:20] VITALS: BP 119/76
--- NOTE | 2019-09-01 14:45 | KCIC ---
MRI of the brain without contrast 09/01/2019 INDICATION: Migraine headache. Sinus infections. Right-sided jaw numbness. COMPARISON: MRI of the brain without contrast April 15, 2015 TECHNIQUE: Multiplanar multisequence MRI imaging of the brain was performed without contrast FINDINGS: There is no evidence of acute intracranial hemorrhage. There is no evidence of acute infarct. Scattered foci of T2 hyperintensity within subcortical white matter are again noted, but grossly similar to comparison exam. No other abnormal signal changes seen. No abnormal restricted diffusion is identified. Ventricles and basilar cisterns have a normal configuration. No evidence of extra-axial fluid collection. Arterial flow voids at the skull base are unremarkable. There is circumferential mucosal thickening within the right maxillary sinus with a fluid level. Findings could represent acute sinusitis. Remaining paranasal sinuses are unremarkable. IMPRESSION: 1. Stable scattered foci of T2 hyperintensity within subcortical white matter. Findings can be seen in chronic migraine headache, or be related changes of chronic small vessel disease. 2. Mucosal thickening and fluid level within the right maxillary sinus. Correlate with clinical evidence of acute sinusitis Electronically signed by: Vinnie Mena MD (09/01/2019 2:42 PM) [id number]
== END | disposition home or self-care (01) ==
LOC: KCIC MRI 12:28
PROVIDERS: ATTEND Psychiatry & Neurology Neurology with Special Qualifications in Child Neurology
DX: G43.719 Chronic migraine without aura, intractable, without status migrainosus (principal)
CPT/HCPCS: 70551

== ENCOUNTER → 2019-09-26 | Outpatient (CLI) | payer MEDICARE, OTHER ==
[2017-07-29 09:20] VITALS: BP 119/76
[~2019-09-26] MED LIST changes: +IOHEXOL 180 MG/ML 10 ML VIAL. ONE; +methylPREDNISolone ACETATE 40 MG/ML VIAL. ONE; +methylPREDNISolone ACETATE 80 MG/ML VIAL. ONE
--- NOTE | 2019-09-26 22:25 | PAIN ---
DATE OF SERVICE: 09/26/2019 PROGRESS NOTE FOR PAIN CLINIC DIAGNOSES: 1. Lumbar radiculopathy with lumbar degenerative disk disease. 2. Cervical radiculopathy with cervical degenerative disk disease and cervical herniated disk. 3. Myofascial pain. HISTORY OF PRESENT ILLNESS: The patient is a 49-year-old female who returns for followup status post lumbar epidural steroid injection x 1, 07/11/2019. The patient reports about 75% improvement for several weeks following the injection with the pain returning in the low back, right lower extremity, posterior gluteus, posterior thigh and posterior calf. Patient reports her chief complaint, however, is neck and bilateral upper extremity and shoulder pain, worse on the right than the left. The patient reports it is a 9 on a scale of 10 at its worst over the past week, 7 on average, 3 at its least and is a 7 today, pressure, aching, sharp, dull, tight, shooting, tingling, becoming more constant and severe in the right upper extremity with activity, repetitive motions with the right arm or raising over her head with her right hand. The patient reports no loss of motor function. She is sleeping better and able to increase her activity with walking and standing with more significant decrease in pain that is after her last injection, but the neck and shoulders now becoming her main complaint. The patient reports no new motor or sensory deficits, no new bowel or bladder incontinence or other complaints. PHYSICAL EXAMINATION: VITAL SIGNS: The patient's blood pressure is 115/71, pulse 65, respirations 18, temperature 98.5 degrees Fahrenheit, weight is 164 pounds. GENERAL: The patient is awake, alert, oriented, appropriate, very pleasant demeanor. HEENT: Head shows normocephalic, atraumatic. Extraocular movements are intact and symmetrical. Oral cavity: Mucous membranes moist and pink. Dentition is intact. NECK: Shows anterior throat supple without palpable lymphadenopathy noted. Swallow reflex symmetrical. CHEST: Shows normal on inspection. Breath sounds clear to auscultation bilaterally. HEART: Shows S1, S2 clear. No murmurs auscultated. ABDOMEN: Soft, nontender, nondistended. No palpable organomegaly is noted. No rebound or guarding demonstrated. BACK: Shows spine grossly in the midline. Normal appearing thoracic kyphosis and lumbar lordotic curvature. Cervical paraspinous muscle shows symmetrical on inspection, on palpation shows some moderate tenderness diffusely bilaterally going diffusely without significant radiation. The patient has good rotational motion of cervical spine, both laterally as well as extension and flexion without significant increase in pain. The patient's upper extremities show deep tendon reflexes are 2+ in the biceps and triceps tendons. 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 Lower back shows moderate tenderness throughout the upper, middle and lower distribution of paraspinous musculature, but the paraspinous muscles are symmetrical on inspection. No radiation demonstrated good rotational both laterally as well as extension and flexion is maintained without significant pain reported. EXTREMITIES: Lower extremities show deep tendon reflexes at 2+ in the patellar, 1+ tendo-calcaneus tendons. Motor exam is approximately 4 on a scale of 5 on the right and 5/5 on the left. Peripheral pulses are 2+ radial, 1+ posterior tibial. Options were discussed with the patient. The patient's old chart was reviewed as her current medication regimen updated. Current review of systems updated today as well. We will proceed with a cervical epidural steroid injection today with fluoroscopic guidance. Risks were again discussed including, but not limited to bleeding, infection, possibility of epidural hematoma, subsequent neurological compromise, dural puncture, headaches, spinal cord and/or nerve damage, side effects of steroid medication and poor results regarding pain control. The patient understands and wished to proceed. The patient will return to clinic in approximately 2 weeks for followup. She was counseled on return appointment, activity level and side effects to be aware of. DIAGNOSES: Cervical radiculopathy with cervical degenerative disk disease and cervical herniated disk. PROCEDURE: Cervical epidural steroid injection, translaminar approach at the C6-C7 level using C-arm fluoroscopic guidance under sterile prep and drape using local anesthetic. MEDICATION INJECTED: A total of 120 mg Depo-Medrol plus 5 mL preservative-free normal saline and 2 mL of contrast. CONDITION AT DISCHARGE: Stable. The patient tolerated procedure well, had no complications. JUSTINA TONG MD DR: IRIS/job JOB#: [id number] / [id number]
== END ==
LOC: PNCL 11:35
PROVIDERS: ATTEND Anesthesiology
DX: M51.16 Intervertebral disc disorders with radiculopathy, lumbar region (principal); M50.123 Cervical disc disorder at C6-C7 level with radiculopathy; M79.18 Myalgia, other site
CPT/HCPCS: 62321; J1030; J1040; Q9965

== ENCOUNTER → 2019-12-08 | Outpatient (CLI) | payer MEDICARE, OTHER ==
[2017-07-29 09:20] VITALS: BP 119/76
[~2019-12-08] MED LIST changes: -DICL100G18 TP; +DICL100G54 TP
--- NOTE | 2019-12-08 14:10 | PAIN ---
DATE OF SERVICE: 12/08/2019 PROGRESS NOTE FOR PAIN CLINIC DIAGNOSES: 1. Lumbar radiculopathy with lumbar degenerative disk disease. 2. Cervical radiculopathy with cervical degenerative disk disease and cervical herniated disk. 3. Myofascial pain. HISTORY OF PRESENT ILLNESS: The patient is a 49-year-old female, who returns for followup status post cervical epidural steroid injections and trigger point injections. The patient did well after previous lumbar epidural steroid injection in 06/2019 and cervical epidural steroid injection in 08/2019 about 90% improved. The patient reports the pain is returning now in her low back and right lower extremity, radiating to the posterior gluteus, posterolateral thigh, lateral anterior thigh, anterior medial thigh, medial lower leg into the ankle and foot, especially the great toe. The patient reports it is worse with walking, standing, changing positions, better with sitting or lying down. It is a pinching, pulling sensation in the right posterior thigh and anterior thigh. The patient reports it is a 10 on a scale of 10 at its worst, 10 on average, 5 at its least and is a 10 today. The patient reports it is aching, sharp, tight and shooting, cramping and stabbing, becoming more constant and severe with activity. Awakens from sleep at least every 4-5 hours a night. The patient reports initially she was doing much better after her last cervical injection, but the pain in her low back and right leg now is significantly persisted. The patient reports no new motor or sensory deficits. No new bowel or bladder incontinence or other complaints. PHYSICAL EXAMINATION: VITAL SIGNS: The patient's blood pressure 112/63, pulse 60, respirations 16, temperature is 97.6 degrees Fahrenheit and height is 5 feet 8 inches, weight is 169 pounds. GENERAL: The patient is awake, alert, oriented, appropriate, has very pleasant demeanor. HEENT: Shows normocephalic, atraumatic. Extraocular movements are intact and symmetrical. Oral cavity: Mucous membranes are moist and pink. Dentition is intact. NECK: Shows anterior throat supple without palpable lymphadenopathy noted. Swallow reflex symmetrical. CHEST: Shows normal on inspection. Breath sounds are clear to auscultation bilaterally. No rales, rhonchi or wheezes auscultated. HEART: Shows S1, S2 clear. ABDOMEN: Soft, nontender, nondistended. BACK: Shows spine grossly in the midline. Cervical paraspinous muscle shows symmetrical on inspection as does thoracic and lumbar distributions. Normal cervical lordotic curvature. Slight increased thoracic kyphosis. Some minor flattening of lumbar lordotic curvature. Lumbar paraspinous muscle shows symmetrical on inspection, on palpation shows some moderate tenderness diffusely in the middle and lower distribution of the paraspinous muscles, more on the right than the left, but without trigger points, without radiation. The patient has good rotational motion of the lumbar spine, both laterally as well as extension and flexion without significant increase in pain. EXTREMITIES: Lower extremities show deep tendon reflexes, 2+ in the patellar, 1+ tendo-calcaneus tendons. Motor exam is approximately 4 on a scale of 5 on the right and 5/5 on the left. Peripheral pulses are 1+ posterior tibia. No peripheral edema bilaterally. Options were discussed with the patient. The patient's old chart was reviewed as her current medication regimen updated. Current review of systems updated today as well. We will proceed with a lumbar epidural steroid injection today with fluoroscopic guidance. Risks were discussed including but not limited to bleeding, infection, possibility of epidural hematoma, subsequent neurological compromise, dural puncture, headaches, spinal cord and/or nerve damage, side effects of steroid medication and poor results regarding pain control. The patient understands and wished to proceed. The patient will return to the clinic in approximately 2 weeks for followup, was counseled on return appointment, activity level and side effects to be aware of. DIAGNOSES: Lumbar radiculopathy with lumbar degenerative disk disease. PROCEDURE: Lumbar epidural steroid injection, translaminar approach, L4-L5 level using C-arm fluoroscopic guidance under sterile prep and drape using local anesthetic. MEDICATION INJECTED: A total of 120 mg Depo-Medrol plus 10 mL preservative-free normal saline and 2 mL of contrast. CONDITION AT DISCHARGE: Stable. The patient tolerated procedure well, had no complications. JUSTINA TONG MD DR: IRIS/job JOB#: [id number] / [id number]
== END ==
LOC: PNCL 12:51
PROVIDERS: ATTEND Anesthesiology
DX: M51.16 Intervertebral disc disorders with radiculopathy, lumbar region (principal); M79.18 Myalgia, other site; M50.10 Cervical disc disorder with radiculopathy, unspecified cervical region
CPT/HCPCS: 62323; J1030; J1040; Q9965

== ENCOUNTER → 2020-04-12 | Outpatient (CLI) | payer MEDICARE, OTHER ==
[2017-07-29 09:20] VITALS: BP 119/76
[~2020-04-12] MED LIST changes: +MULT-445 PO; -MULT1TAB52 PO; +TRAM50TA PO
--- NOTE | 2020-04-12 12:19 | PDOC ---
Progress Note - Pain Clinic Date of Service: DOS: DATE: 04/12/20 TIME: 12:12 Diagnosis: Dx: Lumbar radiculopathy with lumbar degenerative disc disease Cervical radiculopathy with cervical degenerative disc disease Myofascial pain History or Present Illness: HPI: 50-year-old female returns follow-up status post lumbar epidural steroid injection x1 December 08, 2019. Patient ports about 80% improvement for about a month and a half after the injection now the pain is returning in the low back especially in the right lower extremity. Reports its feeling "heavy" aching dull tight stabbing coming more constant severe in the back and unbearable in the legs waking her from sleep at night as well. Patient ports significant fatigability with the right lower extremity compared to the left with a been slow walking and short distances. Patient reports difficulty with driving using her right foot as well secondary to the pain. Patient ports wakes her from sleep at least once or twice a night but not every night patient reports no new motor or sensory deficits no bowel or bladder incontinence rates her pain as a 10 on scale 10 is worse over the past week 5 on average 3 its least and is a 5 today. Physical Exam: VS: Pressure is 132/84 pulse 67 respirations 16 temperature is 97.8 F height is 5 foot 8 inches weight is 165 pounds PE: PHYSICAL EXAMINATION: GENERAL: The patient is awake, alert, oriented, appropriate, very pleasant demeanor HEENT: Shows normocephalic, atraumatic. Extraocular movements are intact and symmetrical. Oral cavity: Mucous membranes moist and pink. Dentition is intact. NECK: Shows anterior throat supple without palpable lymphadenopathy noted. Swallow reflex symmetrical. CHEST: Shows normal on inspection. Breath sounds are clear bilaterally. HEART: Shows S1, S2 clear. No murmurs auscultated. ABDOMEN: Soft, nontender, nondistended. No palpable organomegaly is noted. No rebound or guarding demonstrated. BACK: Shows spine grossly in the midline. Normal-appearing cervical lordotic curvature. There is slightly increased thoracic kyphosis, some minor flattening of the lumbar lordotic curvature. Lumbar paraspinous muscles show symmetrical on inspection, on palpation shows some moderate tenderness diffusely throughout the upper, middle and lower distribution of the paraspinous muscles bilaterally and also into the lower thoracic paraspinous musculature, firm and tender, but without specific trigger points, without radiation of pain. The patient has good rotational motion of the lumbar spine, both laterally as well as extension and flexion without significant difficulty. No tenderness over the spinous processes, sacrum or sacroiliac regions. EXTREMITIES: Lower extremities show deep tendon reflexes 2+ in the patellar and tendo calcaneus tendons. Motor exam is 4 on a scale of 5 with right dorsiflexion, extension, quadriceps and hamstring flexion and 5/5 on the left. Peripheral pulses are 1+ posterior tibial. No peripheral edema is noted bilaterally. Lower extremities are warm and dry to touch, equal in color and appearance. SKIN: Shows warm and dry, good turgor. No edema. No sores, rashes or bruising throughout. Procedure: Procedure: Options were discussed with the patient. Patient's old chart was reviewed as her current medication regimen updated, and review of systems updated today as well. We will proceed with a second in a series lumbar epidural steroid injection today. Risks were discussed including but not limited to: Bleeding, infection, possibility of epidural hematoma and subsequent neurological compromise, dural puncture, headaches, spinal cord and/or nerve damage, side effects of steroid medication, and poor results regarding pain control. Patient understands wished to proceed. Patient return to clinic in approximately 2 weeks for follow-up. Patient was counseled as to activity level as well as side effects to be aware of. Medication Injected: Med Injected: Procedure is lumbar epidural steroid injection under local anesthetic using sterile prep and drape at the L4-5 level using C-arm fluoroscopic guidance in both AP and lateral views medications injected is 120 mg Depo-Medrol + 10 mL preservative-free normal saline and 2 mL contrast- condition at discharge is stable patient tolerated procedure well had no complications. Condition at Discharge: Condition at Discharge: Condition at discharge is stable patient tolerated the procedure well had no complications. JUSTINA TONG MD Apr 12, 2020 12:19
== END | disposition home or self-care (01) ==
LOC: PNCL 11:01
PROVIDERS: ATTEND Anesthesiology
DX: M51.16 Intervertebral disc disorders with radiculopathy, lumbar region (principal); M50.10 Cervical disc disorder with radiculopathy, unspecified cervical region; M79.18 Myalgia, other site; F41.9 Anxiety disorder, unspecified; Z79.82 Long term (current) use of aspirin; Z79.899 Other long term (current) drug therapy; Z83.3 Family history of diabetes mellitus; Z88.8 Allergy status to other drugs, medicaments and biological substances
CPT/HCPCS: 62323; J1030; J1040; Q9965

== ENCOUNTER → 2020-06-11 | Outpatient (CLI) | payer MEDICARE, OTHER ==
[2017-07-29 09:20] VITALS: BP 119/76
--- NOTE | 2020-06-11 12:14 | PDOC ---
Progress Note - Pain Clinic Date of Service: DOS: DATE: 06/11/20 TIME: 12:09 Diagnosis: Dx: Cervical radiculopathy with cervical degenerative disease and cervical herniated disc Lumbar radiculopathy with lumbar degenerative disc disease Myofascial pain History or Present Illness: HPI: 50-year-old female returns follow-up status post lumbar epidural steroid injection x2 most recently April 12 patient reports did very well with about 80% improvement initially now about 40% improvement greater than chief complaint today is base of neck shoulder and right upper extremity pain. Patient reports significant pain in the base the neck and the right arm right shoulder rating the shoulder blade posteriorly and into the posterior triceps into the forearm as well on the right side only this is causing headaches as well patient reports her pain is a 8 on scale 10 is worse over the past week 5 on average 3 at its least is a 5 today. Patient scribes as aching and sharp tight shooting at times in the right upper extremity cramping and stabbing base the neck and right posterior shoulder becoming constant severe and unbearable at times as well. Patient ports is awakened from sleep at least every 2-3 hours patient reports no loss of motor function but significant fatigability with the right upper extremity as well. Patient's low back is doing better but still significant myofascial pain and she is seeing her chiropractor frequently for adjustment which she feels does help. Patient reports no new motor or sensory deficits no bowel or bladder incontinence or other complaints. Physical Exam: VS: Blood pressure is 122/79 pulse 67 respirations 16 temperature 98.4 F height is 5 foot 8 inches weight is 169 pounds PE: PHYSICAL EXAMINATION: GENERAL: The patient is awake, alert, oriented, appropriate, very pleasant demeanor HEENT: Shows normocephalic, atraumatic. Extraocular movements are intact and symmetrical. NECK: Shows anterior throat supple without palpable lymphadenopathy noted. Sw allow reflex symmetrical. CHEST: Shows normal on inspection. Breath sounds are clear bilaterally no rales rhonchi or wheezes. HEART: Shows S1, and S2 are clear. No murmurs auscultated. ABDOMEN: Soft, nontender, nondistended, obese. No palpable organomegaly is noted. No rebound or guarding demonstrated. BACK: Shows spine grossly in the midline. Normal-appearing cervical lordotic curvature. Cervical paraspinous posterior shows symmetrical with inspection on palpation some moderate tenderness diffusely in the inferior aspect the cervical paraspinous muscles are more on the right than the left into the superior medial trapezius as well but without trigger points without atrophy hypertrophy and without radiation. There is slightly increased thoracic kyphosis, some minor flattening of the lumbar lordotic curvature. Lumbar paraspinous muscles show symmetrical on inspection, on palpation shows some moderate tenderness diffusely throughout the upper, middle and lower distribution of the paraspinous muscles without specific trigger points, without radiation of pain. The patient has good rotational motion of the lumbar spine, both laterally as well as extension and flexion without significant difficulty. No tenderness over the spinous processes, sacrum or sacroiliac regions. EXTREMITIES: Upper extremities show deep tendon reflexes 2+ in the biceps and triceps tendons. Motor exam is 4 on a scale of 5 with right hip, biceps and triceps flexion and 5/5 on the left. Peripheral pulses are 2+ radial. No peripheral edema is noted bilaterally. Lower extremities are warm and dry to touch, equal in color and appearance. SKIN: Shows warm and dry, good turgor. No edema. No sores, rashes or bruising throughout. Procedure: Procedure: Options were discussed with the patient. Patient chart was reviewed as her current medication regimen updated current review of systems updated today as well. We will proceed with a cervical epidural steroid injection today with fluoroscopic guidance. Risks were discussed including but not limited to: Bleeding, infection, possibility of epidural hematoma and subsequent neurological compromise, dural puncture, headaches, spinal cord and/or nerve damage, side effects of steroid medication, and poor results regarding pain control. Patient understands wished to proceed. Patient will return to clinic in approximate 2 weeks for follow-up, was counseled as to return appointment activity level and side effects to be aware of. Medication Injected: Med Injected: Procedure cervical epidural steroid injection at the C6-7 level, using local anesthetic under sterile prep and drape using C-arm fluoroscopic guidance under local anesthesia medications injected ; 120 mg Depo-Medrol + 5 mL normal saline and 2 mL contrast; condition at discharge is stable patient tolerated procedure well. and had no complications Condition at Discharge: Condition at Discharge: Condition at discharge is stable, patient tolerated the procedure well and had no complications. JUSTINA TONG MD Jun 11, 2020 12:14
== END | disposition home or self-care (01) ==
LOC: PNCL 11:32
PROVIDERS: ATTEND Anesthesiology
DX: M50.10 Cervical disc disorder with radiculopathy, unspecified cervical region (principal); M51.16 Intervertebral disc disorders with radiculopathy, lumbar region; M79.18 Myalgia, other site; J45.909 Unspecified asthma, uncomplicated; E66.9 Obesity, unspecified; F41.9 Anxiety disorder, unspecified; F32.9 Major depressive disorder, single episode, unspecified; Z90.710 Acquired absence of both cervix and uterus; Z98.890 Other specified postprocedural states; Z79.899 Other long term (current) drug therapy; Z79.82 Long term (current) use of aspirin; Z91.040 Latex allergy status; Z88.1 Allergy status to other antibiotic agents; Z83.3 Family history of diabetes mellitus
CPT/HCPCS: 62321; J1030; J1040; Q9965

== ENCOUNTER → 2020-06-18 | Outpatient (CLI) | payer MEDICARE, OTHER ==
[2017-07-29 09:20] VITALS: BP 119/76
[~2020-06-18] MED LIST changes: +BUPIVACAINE MPF 0.25% 10 ML VIAL. ONE; -IOHEXOL 180 MG/ML 10 ML VIAL. ONE; -methylPREDNISolone ACETATE 80 MG/ML VIAL. ONE
--- NOTE | 2020-06-18 08:37 | PDOC ---
Progress Note - Pain Clinic Date of Service: DOS: DATE: 06/18/20 TIME: 08:32 Diagnosis: Dx: Cervical radiculopathy with cervical degenerative disease and cervical herniated disc Lumbar radiculopathy with lumbar degenerative disc disease Myofascial pain History or Present Illness: HPI: 50-year-old female returns follow-up status post cervical epidural steroid injection on June 11, 2020. Patient put about 75% improvement and still doing well but has some significant myofascial pain the base the neck and shoulder which we discussed with her on her last visit and will treat today. Patient ports significant pain base the neck shoulder right shoulder left shoulder upper back mid back low back specially on the right side in the low back and the right hip. Patient ports the pain is a 10 on scale 10 is worse over the past week 6 on average for its least describes as aching and dull sharp burning at times and stabbing. Worse with activity worse with using the right upper extremity patient reports no new motor or sensory deficits no new bowel or bladder incontinence or other complaints. Physical Exam: VS: Blood pressure is 124/82 pulse is 80 respirations are 16 temperature is 98.3 F height is 5 foot 7 inches weight 172 pounds PE: PHYSICAL EXAMINATION: GENERAL: The patient is awake, alert, oriented, appropriate, very pleasant demeanor HEENT: Shows normocephalic, atraumatic. Extraocular movements are intact and symmetrical. NECK: Shows anterior throat supple without palpable lymphadenopathy noted. Swallow reflex symmetrical. CHEST: Shows normal on inspection. Breath sounds are clear bilaterally, no rales rhonchi or wheezes. HEART: Shows S1, S2 clear. No murmurs auscultated. ABDOMEN: Soft, nontender, nondistended, obese. No palpable organomegaly is noted. No rebound or guarding demonstrated. BACK: Shows spine grossly in the midline. Normal-appearing cervical lordotic curvature. Cervical spine shows full rotation motion both laterally as well as extension flexion without difficulty. Paraspinous muscles show symmetrical with inspection on palpation some moderate tenderness and very firm ropelike musculature more on the right than the left with throughout the upper middle lower distribution of cervical paraspinous musculature also into the right trapezius and the superior medial aspect very firm ropelike musculature consistent with trigger point areas as well approximate 2 of these areas on the left trapezius but several on the right. This is also true into the thoracic p araspinous musculature with very firm ropelike musculature bilaterally worse on the right than the left very tender very firm consistent with trigger point areas of musculature but without radiation. The patient has good rotational motion of the lumbar spine, both laterally as well as extension and flexion without significant difficulty. No tenderness over the spinous processes, s acrum or sacroiliac regions. EXTREMITIES: Lower extremities show deep tendon reflexes 2+ in the patellar and tendo calcaneus tendons. Motor exam is 4 on a scale of 5 with right dorsiflexion, extension, quadriceps and hamstring flexion and 5/5 on the left. Peripheral pulses are 1+ posterior tibial. No peripheral edema is noted bilaterally. Lower extremities are warm and dry to touch, equal in color and appearance. SKIN: Shows warm and dry, good turgor. No edema. No sores, rashes or bruising throughout. Procedure: Procedure: Options were discussed with the patient. Patient chart was reviewed as her current medication regimen updated current review of systems updated today as well. We will proceed with trigger point injections of the identified musculature. Risks were discussed including but not limited to bleeding infection possibility of intravascular injection sequelae spread to local anesthetic and numbness pneumothorax side effects steroid medication and portal scarring pain control. Patient understands wished to proceed. Patient return to clinic in approximate 4 weeks for follow-up was counseled as to return appointment activity level and side effects to be aware of. Medication Injected: Med Injected: Sterile prep and drape, trigger point identified were injected using a 25-gauge needle 1 cc of 0.25% ropivacaine and a total of 40 mg and 12 cc of 0.25% Vivacaine at each level 1 cc injected in the bilateral cervical paraspinous posterior bilateral trapezius musculature bilateral thoracic paraspinous posterior and bilateral lumbar paraspinous musculature. Negative aspiration was noted each site patient tolerated procedure well and had no complications. Condition at Discharge: Condition at Discharge: Condition at discharge is stable, patient tolerated procedure well had no compli cations. JUSTINA TONG MD Jun 18, 2020 08:37
== END | disposition home or self-care (01) ==
LOC: PNCL 08:03
PROVIDERS: ATTEND Anesthesiology
DX: M51.16 Intervertebral disc disorders with radiculopathy, lumbar region (principal); M50.10 Cervical disc disorder with radiculopathy, unspecified cervical region; M79.18 Myalgia, other site; J45.909 Unspecified asthma, uncomplicated; F41.9 Anxiety disorder, unspecified; F32.9 Major depressive disorder, single episode, unspecified; Z90.710 Acquired absence of both cervix and uterus; Z98.890 Other specified postprocedural states; Z79.899 Other long term (current) drug therapy; Z91.040 Latex allergy status; Z88.1 Allergy status to other antibiotic agents; Z83.3 Family history of diabetes mellitus
CPT/HCPCS: 20553; J1030; J3490

== ENCOUNTER → 2020-08-19 | Outpatient (CLI) | payer MEDICARE, OTHER ==
[2017-07-29 09:20] VITALS: BP 119/76
[~2020-08-19] MED LIST changes: -BUPIVACAINE MPF 0.25% 10 ML VIAL. ONE; +IOHEXOL 180 MG/ML 10 ML VIAL. ONE; +methylPREDNISolone ACETATE 80 MG/ML VIAL. ONE
--- NOTE | 2020-08-19 13:52 | PDOC4 ---
PROCEDURE Procedure Patient was consented for cervical epidural steroid injection. Risks were d iscussed including but not limited to: Bleeding, infection, possibility of epidural hematoma and subsequent neurological compromise, dural puncture, headaches, spinal cord and/or nerve damage, side effects of steroid medication, and poor results regarding pain control. Patient understands and wished to proceed. Procedure cervical epidural steroid injection at the C6-7 level, using local anesthetic under sterile prep and drape using C-arm fluoroscopic guidance under local anesthesia medications injected ; 120 mg Depo-Medrol + 5 mL normal saline and 2 mL contrast; condition at discharge is stable patient tolerated procedure well. and had no complications JUSTINA TONG MD Aug 19, 2020 13:52
--- NOTE | 2020-08-19 13:52 | PDOC ---
Progress Note - Pain Clinic Date of Service: DOS: DATE: 08/19/20 TIME: 13:47 Diagnosis: Dx: Cervical radiculopathy with cervical degenerative disease and cervical herniated disc Lumbar radiculopathy with lumbar degenerative disc disease Myofascial pain History or Present Illness: HPI: 50-year-old female returns in follow-up status post lumbar epidural steroid injections as well as cervical epidural steroid injections and trigger point injections. Patient most recently seen June 18, 2020 with trigger point patient did very well in the neck upper back mid back low back and right gluteus. Patient reports now the pain is increasing and she has been doing some increased work at home remodeling her house anterior and has increased pain in the shoulder left shoulder especially base the neck upper back radiating to the left thumb with numbness and tingling in the deltoid laterally also in the bicep tricep region and the lateral aspect of the forearm into the thumb. Patient reports the pain is a 9 on scale 10 is worse over the past week 6 on average 3 its least is a 6 today. Patient reports no loss of motor function but significant fatigability with both the upper extremites. Patient describes the pain as aching sharp tight shooting in the arm stabbing in the neck and base of the neck constant severe unbearable at times with activity. Patient reports that wakens her from sleep at least once or twice a night. Patient reports some increased fatigability of the left upper extremity but no overt motor loss. Physical Exam: VS: Blood pressure 112/70 pulse 60 respirations 16 temperature 97.9 F weight is 173 pounds PE: PHYSICAL EXAMINATION: GENERAL: The patient is awake, alert, oriented, appropriate, and very pleasant demeanor HEENT: Shows normocephalic, atraumatic. Extraocular movements are intact and symmetrical. NECK: Shows anterior throat supple without palpable lymphadenopathy noted. Swallow reflex symmetrical. CHEST: Shows normal on inspection. Breath sounds are clear bilaterally. HEART: Shows S1, S2 clear. No murmurs auscultated. ABDOMEN: Soft, nontender, nondistended, obese. No palpable organomegaly is noted. BACK: Shows spine grossly in the midline. Normal-appearing cervical lordotic curvature. Cervical paraspinous muscles show symmetrical on inspection on palpation some moderate tenderness diffusely throughout the upper middle paraspinous muscles but without significant trigger points. Patient shows good rotation motion cervical spine both laterally greater than 45 degrees right and left as well as full extension full forward flexion without significant increase in pain. There is slightly increased thoracic kyphosis, some minor flattening of the lumbar lordotic curvature. Lumbar paraspinous muscles show symmetrical on inspection, on palpation shows some moderate tenderness diffusely throughout the upper, middle and lower distribution of the paraspinous muscles, right greater than left, but without specific trigger points, without radiation of pain. The patient has good rotational motion of the lumbar spine, both laterally as well as extension and flexion without significant difficulty. No tenderness over the spinous processes, sacrum or sacroiliac regions. EXTREMITIES: Lower extremities show deep tendon reflexes 2+ in the patellar and tendo calcaneus tendons. Motor exam is 4 on a scale of 5 with right dorsiflexion, extension, quadriceps and hamstring flexion and 5/5 on the left. Peripheral pulses are 1+ posterior tibial. No peripheral edema is noted bilater ally. Lower extremities are warm and dry to touch, equal in color and appearance. Upper extremities show deep tendon reflexes 2+ in the bicep and triceps tendons motor exam is 4-5 with left asbestos remover strength bicep tricep flexion 5 out of 5 on the right. Peripheral pulses are 2+ radial no peripheral edema is noted bilaterally. SKIN: Shows warm and dry, good turgor. No edema. No sores, rashes or bruising throughout. Procedure: Procedure: Options were discussed with the patient. Patient will chart reviews her current medication regimen updated current review of systems updated today as well. Proceed with a cervical epidural steroid injection today with fluoroscopic guidance. Risks were discussed including but not limited to: Bleeding, infection, possibility of epidural hematoma and subsequent neurological compromise, dural puncture, headaches, spinal cord and/or nerve damage, side effects of steroid medication, and poor results regarding pain control. Patient understands and wished to proceed. Patient will return to clinic in approximate 2 weeks for follow-up, was counseled as to return appointment activity level and side effects to be aware of. Medication Injected: Med Injected: Procedure cervical epidural steroid injection at the C6-7 level, using local anesthetic under sterile prep and drape using C-arm fluoroscopic guidance under local anesthesia medications injected ; 120 mg Depo-Medrol + 5 mL normal saline and 2 mL contrast; condition at discharge is stable patient tolerated procedure well. and had no complications Condition at Discharge: Condition at Discharge: Condition at discharge is stable, patient tolerated the procedure well and had no complications. JUSTINA TONG MD Aug 19, 2020 13:52
== END | disposition home or self-care (01) ==
LOC: PNCL 12:54
PROVIDERS: ATTEND Anesthesiology
DX: M50.10 Cervical disc disorder with radiculopathy, unspecified cervical region (principal); M51.16 Intervertebral disc disorders with radiculopathy, lumbar region; M79.10 Myalgia, unspecified site; J45.909 Unspecified asthma, uncomplicated; E66.9 Obesity, unspecified; F41.9 Anxiety disorder, unspecified; F32.9 Major depressive disorder, single episode, unspecified; Z90.710 Acquired absence of both cervix and uterus; Z98.890 Other specified postprocedural states; Z79.899 Other long term (current) drug therapy; Z88.1 Allergy status to other antibiotic agents; Z91.040 Latex allergy status
CPT/HCPCS: 62321; J1030; J1040; Q9965

== ENCOUNTER → 2020-09-27 | Outpatient (CLI) | payer MEDICARE, OTHER ==
[2017-07-29 09:20] VITALS: BP 119/76
[~2020-09-27] MED LIST changes: +LIDOCAINE 1% PF 2 ML VIAL. ONE
--- NOTE | 2020-09-27 13:04 | PDOC ---
Progress Note - Pain Clinic Date of Service: DOS: DATE: 09/27/20 TIME: 13:00 Diagnosis: Dx: Lumbar radiculopathy with lumbar degenerative disease Cervical radiculopathy with cervical degenerative disease and cervical herniated disc Myofascial pain History or Present Illness: HPI: 50-year-old female returns follow-up status post cervical epidural steroid injection x1. Patient reports about 60% improvement initially much better but her chief complaint today is her low back and right lower extremity pain. Patient reports increasing the low back rating the right lower extremity posterior gluteus posterior lateral thigh lateral anterior thigh anteromedial thigh and medial lower leg as well as in the calf worse with walking standing changing positions better with sitting or laying down. Patient reports generally is not awaken her from sleep is better with sitting or laying but is much worse with walking and standing. Patient reports standing is the worst and rates it is a 10 on scale 10 over the past week 7 on average 4 to sleep and is a 7 today. Patient reports no new motor or sensory deficits no new bowel or bladder incontinence patient describes the pain as aching and sharp in the back tightness shooting in the right lower extremity with some tingling pain as well as a stabbing pain in the back and leg. Physical Exam: VS: Blood pressure is 122/82 pulse 67 respiration 16 temperature 98.0 F height is 5 feet 8 inches weight is 176 pounds PE: PHYSICAL EXAMINATION: GENERAL: The patient is awake, alert, oriented, appropriate, very pleasant demeanor HEENT: Shows normocephalic, atraumatic. Extraocular movements are intact and symmetrical. NECK: Shows anterior throat supple without palpable lymphadenopathy noted. Swallow reflex symmetrical. CHEST: Shows normal on inspection. Breath sounds are clear bilaterally, no rales or rhonchi. HEART: Shows S1, S2 clear. No murmurs auscultated. ABDOMEN: Soft, nontender, nondistended, obese. No palpable organomegaly is noted. BACK: Shows spine grossly in the midline. Normal-appearing cervical lordotic curvature. Cervical paraspinous muscles show symmetrical inspection, on palpation some mild tenderness only diffusely in the inferior aspect of the paraspinous musculature bilaterally slightly more on the right than the left and into the right is superior medial trapezius as well as the rhomboid distribution with some firm ropelike musculature on the right compared to the left. Neck shows full rotation motion cervical spine both laterally as well as full extension full forward flexion without significant difficulty. There is slightly increased thoracic kyphosis, some minor flattening of the lumbar lordotic curvature. Lumbar paraspinous muscles show symmetrical on inspection, on palpation shows some moderate tenderness diffusely throughout the upper, middle and lower distribution of the paraspinous muscles, but without specific trigger points, without radiation of pain. The patient has good rotational motion of the lumbar spine, both laterally as well as extension and flexion without significant difficulty. No tenderness over the spinous processes, sacrum or sacroiliac regions. EXTREMITIES: Lower extremities show deep tendon reflexes 2+ in the patellar and tendo calcaneus tendons. Motor exam is 5 on a scale of 5 with right dorsiflexion, extension, quadriceps and hamstring flexion and 4/5 on the left. Peripheral pulses are 1+ posterior tibial. No peripheral edema is noted bilaterally. Lower extremities are warm and dry to touch, equal in color and appearance. Upper extremity show deep tendon reflexes 2+ in the bicep and triceps tendons are equal motor exam is strong with approximately 5 out of 5 right and 4-5 on the left with entry level accountant strength bicep and tricep flexion. SKIN: Shows warm and dry, good turgor. No edema. No sores, rashes or bruising throughout. Procedure: Procedure: Options were discussed with the patient. Patients chart was reviewed reviewed as was her current medication regimen updated current review of systems updated today as well. We will proceed with a lumbar epidural steroid injection today with fluoroscopic guidance. Risks were discussed including but not limited to: Bleeding, infection, possibility of epidural hematoma and subsequent neurological compromise, dural puncture, headaches, spinal cord and/or nerve damage, side effects of steroid medication, and poor results regarding pain control. Patient understands and wished to proceed. Patient will return to clinic in approximate 2 weeks for follow-up, was counseled as to return appointment activity level and side effects to be aware of. Medication Injected: Med Injected: Procedure is lumbar epidural steroid injection under local anesthetic using hernán rile prep and drape at the L4-5 level using C-arm fluoroscopic guidance in both AP and lateral views medications injected is 120 mg Depo-Medrol + 10 mL preservative-free normal saline and 2 mL contrast- condition at discharge is stable patient tolerated procedure well had no complications. Condition at Discharge: Condition at Discharge: Patient discharged stable, patient tolerated procedure well had no complications. JUSTINA TONG MD Sep 27, 2020 13:04
--- NOTE | 2020-09-27 13:05 | PDOC4 ---
PROCEDURE Procedure Patient was consented for lumbar epidural steroid injection. Risks were dis cussed including but not limited to: Bleeding, infection, possibility of epidural hematoma and subsequent neurological compromise, dural puncture, headaches, spinal cord and/or nerve damage, side effects of steroid medication, and poor results regarding pain control. Patient understands and wished to proceed. Procedure is lumbar epidural steroid injection under local anesthetic using sterile prep and drape at the L4-5 level using C-arm fluoroscopic guidance in both AP and lateral views medications injected is 120 mg Depo-Medrol + 10 mL preservative-free normal saline and 2 mL contrast- condition at discharge is stable patient tolerated procedure well had no complications. JUSTINA TONG MD Sep 27, 2020 13:05
== END | disposition home or self-care (01) ==
LOC: PNCL 11:42
PROVIDERS: ATTEND Anesthesiology
DX: M51.16 Intervertebral disc disorders with radiculopathy, lumbar region (principal); M50.10 Cervical disc disorder with radiculopathy, unspecified cervical region; M79.10 Myalgia, unspecified site; J45.909 Unspecified asthma, uncomplicated; E66.9 Obesity, unspecified; F41.9 Anxiety disorder, unspecified; F32.9 Major depressive disorder, single episode, unspecified; Z90.710 Acquired absence of both cervix and uterus; Z98.890 Other specified postprocedural states; Z79.899 Other long term (current) drug therapy; Z91.040 Latex allergy status; Z88.8 Allergy status to other drugs, medicaments and biological substances
CPT/HCPCS: 62323; J1030; J1040; J3490; Q9965

== ENCOUNTER → 2020-11-17 | Outpatient (CLI) | payer MEDICARE, OTHER ==
[2017-07-29 09:20] VITALS: BP 119/76
[~2020-11-17] MED LIST changes: -IOHEXOL 180 MG/ML 10 ML VIAL. ONE; -LIDOCAINE 1% PF 2 ML VIAL. ONE; -methylPREDNISolone ACETATE 40 MG/ML VIAL. ONE; -methylPREDNISolone ACETATE 80 MG/ML VIAL. ONE
--- NOTE | 2020-11-17 14:40 | PDOC ---
Progress Note - Pain Clinic Date of Service: DOS: DATE: 11/17/20 TIME: 14:37 Diagnosis: Dx: Cervical radiculopathy with cervical degenerative disc disease and cervical herniated disc Lumbar radiculopathy lumbar degenerative disc disease Myofascial pain History or Present Illness: HPI: 50-year-old female returns for follow-up status post cervical epidural steroid traction x1 and lumbar epidural steroid injection x1. Patient reports why her cervical injection helped significantly her low back and right lower extremity still significantly painful patient reports no significant improvement after the first injection patient rates the pain is a 10 on scale 10 at all times over the past week and is a 10 today patient reports cramping aching dull sharp alternating the right posterior gluteus posterior lateral thigh anterior thigh medial thigh medial lower leg also in the posterior calf fdc across the calf and then into the anterior aspect significantly to the ankle and foot patient reports getting worse with activity standing walking she went to the emergency department once about a week ago and received a Toradol shot which helped to a moderate extent. Patient reports no loss of motor function but significant fatigability of the right lower extremity with walking. Patient has had chiropractic treatment in the past 2 weeks which is only minimally helpful as well patient reports its worse at night has been waking her from sleep occasionally but not every night. Patient reports no new bowel or bladder incontinence or other complaints. Physical Exam: VS: Blood pressure is 116/89 pulse 84 respirations 18 temperature 98.0 F height is 5 feet 8 inches weight is 179 pounds PE: PHYSICAL EXAMINATION: GENERAL: The patient is awake, alert, oriented, appropriate, very pleasant demeanor HEENT: Shows normocephalic, atraumatic. Extraocular movements are intact and symmetrical. Oral cavity: Mucous membranes moist and pink. Dentition is intact. NECK: Shows anterior throat supple without palpable lymphadenopathy noted. Swallow reflex symmetrical. CHEST: Shows normal on inspection. Breath sounds are clear bilaterally, no rales or rhonchi. HEART: Shows S1, S2 clear. No murmurs auscultated. ABDOMEN: Soft, nontender, nondistended, obese. No palpable organomegaly is noted. No rebound or guarding demonstrated. BACK: Shows spine grossly in the midline. Normal-appearing cervical lordotic curvature. There is slightly increased thoracic kyphosis, some minor flattening of the lumbar lordotic curvature. Lumbar paraspinous muscles show symmetrical on inspection, on palpation shows some moderate tenderness diffusely throughout the upper, middle and lower distribution of the paraspinous muscles without specific trigger points, without radiation of pain. The patient has good rotational motion of the lumbar spine, both laterally as well as extension and flexion without significant difficulty. EXTREMITIES: Lower extremities show deep tendon reflexes 2+ in the patellar and tendo calcaneus tendons. Motor exam is 4 on a scale of 5 with right dorsiflexion, extension, quadriceps and hamstring flexion and 5/5 on the left. Peripheral pulses are 1+ posterior tibial. No peripheral edema is noted bilaterally. Lower extremities are warm and dry to touch, equal in color and appearance. SKIN: Shows warm and dry, good turgor. No edema. No sores, rashes or bruising throughout. Procedure: Procedure: Patient discussed with the patient. Patient's old chart reviews her current me dication regimen updated current review of systems updated today as well. We will order MRI scan of the lumbar spine and the right hip as she is having significant pain in both regions and radicular fashion as well as in the groin and right hip symptoms with weightbearing. Patient will follow up after MRI scan is completed meantime will try Medrol Dosepak patient was given instru ctions well side effects aware with the medication. Medication Injected: Med Injected: None Condition at Discharge: Condition at Discharge: Condition at discharge is stable. JUSTINA TONG MD Nov 17, 2020 14:40
== END | disposition home or self-care (01) ==
LOC: PNCL 13:24
PROVIDERS: ATTEND Anesthesiology
DX: M50.10 Cervical disc disorder with radiculopathy, unspecified cervical region (principal); M51.16 Intervertebral disc disorders with radiculopathy, lumbar region; M79.18 Myalgia, other site; J45.909 Unspecified asthma, uncomplicated; E66.9 Obesity, unspecified; F41.9 Anxiety disorder, unspecified; F32.9 Major depressive disorder, single episode, unspecified; Z90.710 Acquired absence of both cervix and uterus; Z98.890 Other specified postprocedural states; Z79.899 Other long term (current) drug therapy; Z91.040 Latex allergy status; Z88.8 Allergy status to other drugs, medicaments and biological substances
CPT/HCPCS: G0463

== ENCOUNTER → 2020-11-25 | Outpatient (CLI) | payer MEDICARE, OTHER ==
[2017-07-29 09:20] VITALS: BP 119/76
--- NOTE | 2020-11-25 17:16 | KCIC ---
Examination: MRI of the right hip without contrast HISTORY: History of right hip pain COMPARISON: None available TECHNIQUE: Multiplanar, multisequence MR imaging of the right hip were performed without contrast FINDINGS: The attachment of the hamstring tendon to the ischial tuberosity, attachment of the gluteal tendons t o the greater trochanter, attachment of the iliopsoas tendon to the lesser trochanter and the attachm ent of the rectus femoris tendon to the anterior inferior iliac spine grossly appears intact. The rig ht femoral head is within the acetabulum. No acute fracture identified.Mild increased T2 signal ident ified at the gluteal tendon attachment to greater trochanter likely mild tendinosis. IMPRESSION: 1. Mild tendinosis gluteal tendons. 2. Mild degenerative changes right hip joint. Electronically signed by: Cesar Armando MD (11/25/2020 5:13 PM) [id number]
--- NOTE | 2020-11-25 17:36 | KCIC ---
MRI of the lumbar spine without contrast 11/25/2020 CLINICAL HISTORY: Low back pain which radiates down the right hip. TECHNIQUE: Unenhanced T1-weighted and T2-weighted sagittal and axial and inversion recovery sagittal images of the lumbar spine were obtained. FINDINGS: Comparison study is dated 08/22/2017. The patient appears to have transitional vertebral anatomy. For the purposes of this dictation 5 lumb ar vertebrae have been assumed. The last reasonly well-defined lumbar-appearing disc space will be re ferred to as L5-S1. There is very mild S-shaped curvature of the thoracolumbar spine. Degenerative signal changes are see n involving the L2-3, L3-4 and L4-5 discs. The marrow signal of the visualized bony structures is wit hin normal limits. The conus medullaris is normal morphology, position, and signal characteristics. On the axial images throughout the lumbar disc spaces the changes of degenerative disc disease are se en. These consist of minimal to mild generalized disc bulges, degenerative changes involving the face t joints and mild to moderate ligamentum flavum hypertrophy bilaterally. Small facet joint effusions are seen at L3-4 and L4-5. These findings do not result in significant central spinal canal stenosis at any level. Mild left neural foraminal stenosis is seen at L4-5. IMPRESSION: The changes of degenerative disc disease are seen throughout the lumbar spine. These find ings do not result in significant central spinal canal stenosis at any level. Mild left neural forami nal stenosis is seen at L4-5. Electronically signed by: Philipp Jeffers MD (11/25/2020 5:33 PM) [id number]
== END | disposition home or self-care (01) ==
LOC: KCIC MRI 14:01
PROVIDERS: ATTEND Anesthesiology
DX: M25.551 Pain in right hip (principal); M51.16 Intervertebral disc disorders with radiculopathy, lumbar region; M48.061 Spinal stenosis, lumbar region without neurogenic claudication; M16.11 Unilateral primary osteoarthritis, right hip; J45.909 Unspecified asthma, uncomplicated; E66.9 Obesity, unspecified; F41.9 Anxiety disorder, unspecified; F32.9 Major depressive disorder, single episode, unspecified; Z79.899 Other long term (current) drug therapy; Z98.890 Other specified postprocedural states; Z91.040 Latex allergy status; Z88.8 Allergy status to other drugs, medicaments and biological substances
CPT/HCPCS: 72148; 73721

== ENCOUNTER → 2020-12-15 | Outpatient (CLI) | payer MEDICARE, OTHER ==
[2017-07-29 09:20] VITALS: BP 119/76
[~2020-12-15] MED LIST changes: +BUPIVACAINE MPF 0.25% 10 ML VIAL. ONE; +methylPREDNISolone ACETATE 40 MG/ML VIAL. ONE
--- NOTE | 2020-12-15 12:03 | PDOC4 ---
PROCEDURE Procedure Patient was consented for trigger point injections. Risk were discussed inc luding but not limited to bleeding infection possibility of intravascular injection sequelae spread of local anesthetic numbness side effects steroid medication portals rating pain control. Patient understands wished to proceed. Under sterile prep and drape patient in left lateral cubitus position patient's low back and right hip and lower extremity were sterilely prepped and draped and trigger points were defined in the right lumbar paraspinous posterior right gluteus musculature right quadricep musculature and right hamstring musculature injected for total of 9 cc 0.25% ropivacaine and total of 40 mg Depo-Medrol after negative aspiration each injection site. Patient tolerated procedure well and had no complications. JUSTINA TONG MD December 15, 2020 12:03
--- NOTE | 2020-12-15 12:03 | PDOC ---
Progress Note - Pain Clinic Date of Service: DOS: DATE: 12/15/20 TIME: 11:59 Diagnosis: Dx: Cervical radiculopathy with cervical degenerative disease and cervical herniated disc Lumbar radiculopathy with lumbar degenerative disease Myofascial pain History or Present Illness: HPI: 50-year-old female returns to follow-up status post lumbar epidural steroid injection x1 and cervical epidural straight injection x1. Patient reports that the lumbar injection was not very helpful still significant pain in the low back and the right lower extremity mostly the posterior gluteus low back and into the right lateral thigh also into the anterior thigh and posterior thigh but reports is tight and spastic patient reports is a 10 on scale 10 is worse over the past week 8 on average 6 its least is 8 today patient report is tight aching stabbing in the right hip and leg worse with walking standing weightbearing also wakes her from sleep at least once every 7 hours patient reports no new motor or sensory deficit still some significant pain with her left shoulder however with difficulty moving past 45 degrees to 90 degrees with the left shoulder with weightbearing without any injury. Physical Exam: VS: Blood pressure is 144/54 pulse 67 respirations 18 temperature 98.2 F height is 5 foot 8 inches weight is 182 pounds. PE: PHYSICAL EXAMINATION: GENERAL: The patient is awake, alert, oriented, appropriate, very pleasant demeanor HEENT: Shows normocephalic, atraumatic. Extraocular movements are intact and symmetrical. Oral cavity: Mucous membranes moist and pink. Dentition is intact. NECK: Shows anterior throat supple without palpable lymphadenopathy noted. Swallow reflex symmetrical. CHEST: Shows normal on inspection. Breath sounds are clear bilaterally, no rales rhonchi wheezes auscultated. HEART: Shows S1, S2 clear. No murmurs auscultated. ABDOMEN: Soft, nontender, nondistended, obese. No palpable organomegaly is noted. No rebound or guarding demonstrated. BACK: Shows spine grossly in the midline. Normal-appearing cervical lordotic curvature. There is slightly increased thoracic kyphosis, some minor flattening of the lumbar lordotic curvature. Lumbar paraspinous muscles show symmetrical on inspection, on palpation shows some moderate tenderness diffusely throughout the upper, middle and lower distribution of the paraspinous muscles, without radiation of pain. Patient has significant tenderness in the low lumbar region only on the right with very firm ropelike musculature in the lumbar paraspinous muscles consistent with trigger point areas of musculature. No radiation is demonstrated with palpation. The patient has good rotational motion of the lumbar spine, both laterally as well as extension and flexion without significant difficulty. No tenderness over the spinous processes, sacrum or sacroiliac regions. EXTREMITIES: Lower extremities show deep tendon reflexes 2+ in the patellar and tendo calcaneus tendons. Motor exam is 4 on a scale of 5 with right dorsiflexion, extension, quadriceps and hamstring flexion and 5/5 on the left. Peripheral pulses are 1+ posterior tibial. No peripheral edema is noted kobi aterally. Lower extremities are warm and dry to touch, equal in color and appearance. Patient's right gluteus region has significant tenderness with palpation in the superior and medial aspect of the gluteus musculature self very firm ropelike musculature very consistent with trigger point areas of musculature without radiation this is true into the lateral aspect of the quadriceps on the anterior aspect of the thigh as well as the lateral aspect of the hamstring musculature very firm ropelike musculature in both these muscle groups with tenderness with palpation without radiation. Left side shows no significant tenderness or trigger points with palpation.. SKIN: Shows warm and dry, good turgor. No edema. No sores, rashes or bruising throughout. Procedure: Procedure: Options discussed with the patient. Patient chart was reviewed as her current m edication regimen updated current review of systems updated today as well. We will proceed with trigger point injections in the right lumbar paraspinous posterior right gluteus musculature right hamstring musculature and right quadriceps musculature. Risk were discussed including but not limited to bleeding infection possibility of intravascular injection sequelae spread local anesthetic numbness side effects steroid medication and poor results regarding pain control. Patient understands wished to proceed. Also will order x-ray of the left shoulder. Patient return to clinic in approximately 2 weeks for follow-up, was counseled as return appointment activity level, and side effects to be aware of. Medication Injected: Med Injected: Under sterile prep and drape patient in left lateral cubitus position patient's low back and right hip and lower extremity were sterilely prepped and draped and trigger points were defined in the right lumbar paraspinous posterior right gluteus musculature right quadricep musculature and right hamstring musculature injected for total of 9 cc 0.25% ropivacaine and total of 40 mg Depo-Medrol after negative aspiration each injection site. Patient tolerated procedure well and had no complications. Condition at Discharge: Condition at Discharge: Condition at discharge stable, patient tolerated procedure well and had no complications. JUSTINA TONG MD December 15, 2020 12:03
== END | disposition home or self-care (01) ==
LOC: PNCL 11:19
PROVIDERS: ATTEND Anesthesiology
DX: M50.10 Cervical disc disorder with radiculopathy, unspecified cervical region (principal); M51.16 Intervertebral disc disorders with radiculopathy, lumbar region; M79.18 Myalgia, other site; E66.9 Obesity, unspecified; J45.909 Unspecified asthma, uncomplicated; F41.9 Anxiety disorder, unspecified; F32.9 Major depressive disorder, single episode, unspecified; Z90.710 Acquired absence of both cervix and uterus; Z98.890 Other specified postprocedural states; Z79.899 Other long term (current) drug therapy; Z91.040 Latex allergy status; Z88.8 Allergy status to other drugs, medicaments and biological substances
CPT/HCPCS: 20553; J1030; J3490

== ENCOUNTER → 2021-01-04 | Outpatient (CLI) | payer MEDICARE, OTHER ==
[2017-07-29 09:20] VITALS: BP 119/76
[~2021-01-04] MED LIST changes: -BUPIVACAINE MPF 0.25% 10 ML VIAL. ONE; +IOHEXOL 180 MG/ML 10 ML VIAL. ONE; +methylPREDNISolone ACETATE 80 MG/ML VIAL. ONE
--- NOTE | 2021-01-04 14:03 | PDOC4 ---
PROCEDURE Procedure Patient was consented for lumbar epidural steroid injection. Risks were dis cussed including but not limited to: Bleeding, infection, possibility of epidural hematoma and subsequent neurological compromise, dural puncture, headaches, spinal cord and/or nerve damage, side effects of steroid medication, and poor results regarding pain control. Patient understands and wished to proceed. Procedure is lumbar epidural steroid injection under local anesthetic using sterile prep and drape at the L4-5 level using C-arm fluoroscopic guidance in both AP and lateral views medications injected is 120 mg Depo-Medrol +10mL preservative-free normal saline and 2 mL contrast- condition at discharge is stable patient tolerated procedure well had no complications. JUSTINA TONG MD Jan 04, 2021 14:03
--- NOTE | 2021-01-04 14:03 | PDOC ---
Progress Note - Pain Clinic Date of Service: DOS: DATE: 01/04/21 TIME: 13:58 Diagnosis: Dx: Lumbar radiculopathy with lumbar degenerative disc disease Cervical radiculopathy with cervical degenerative disc disease and cervical herniated disc Myofascial pain History or Present Illness: HPI: 50-year-old female returns for follow-up status post trigger point injections on her last visit and previous lumbar epidural steroid injection and cervical epidural steroid injection starting July of this year patient did very well with each of these procedures, most recent trigger points patient reports 100% improvement for about 4 days then the pain gradually increased but now the pain is changed and that it is in the low back and radiating the posterior gluteus lateral thigh anterior thigh medial thigh into the lower leg medial calf as well as the ankle worse with walking and standing changing positions patient reports beginning to wake her from sleep again previously it was she reports that 4 hours or so is waking up at night patient reports her pain is a 10 on scale 10 is worse over the past week 7 on average 6 its least is a 7 today patient scribes aching tightness shooting in the low back tingling cramping and stabbing in the back as well as radiating in the right lower extremity and shooting can be severe unbearable with activity. Patient reports no new motor or sensory deficits no new bowel or bladder incontinence or other complaints. Patient did have MRI scan of the lumbar spine November 25, 2020, which we again discussed with her today. Physical Exam: VS: Blood pressure is 144/81 pulse 62 respiration 16 temperature 98.1 F height is 5 foot 8 inches weight is 183 pounds PE: PHYSICAL EXAMINATION: GENERAL: The patient is awake, alert, oriented, appropriate, very pleasant demeanor HEENT: Shows normocephalic, atraumatic. Extraocular movements are intact and symmetrical. Oral cavity: Mucous membranes moist and pink. Dentition is intact. NECK: Shows anterior throat supple without palpable lymphadenopathy noted. Swallow reflex symmetrical. CHEST: Shows normal on inspection. Breath sounds are clear bilaterally. HEART: Shows S1, S2 clear. No murmurs auscultated. ABDOMEN: Soft, nontender, nondistended, obese. No palpable organomegaly is noted. BACK: Shows spine grossly in the midline. Normal-appearing cervical lordotic curvature. There is increased thoracic kyphosis, some mild flattening of the lumbar lordotic curvature. Lumbar paraspinous muscles show symmetrical on inspection, on palpation shows some moderate tenderness diffusely throughout the upper, middle and lower distribution of the paraspinous muscles, but without specific trigger points, without radiation of pain. The patient has good rotational motion of the lumbar spine, both laterally as well as extension and flexion without significant difficulty. No tenderness over the spinous processes, sacrum or sacroiliac regions. EXTREMITIES: Lower extremities show deep tendon reflexes 2+ in the patellar and tendo calcaneus tendons. Motor exam is 4 on a scale of 5 with right dorsiflexion, extension, quadriceps and hamstring flexion and 5/5 on the left. Peripheral pulses are 1+ posterior tibial. No peripheral edema is noted bilaterally. Lower extremities are warm and dry. SKIN: Shows warm and dry, good turgor. No edema. No sores, rashes or bruising throughout. Procedure: Procedure: Options discussed with the patient. Patient chart reviews her current medication regimen updated current review of systems updated today as well. We will proceed with a second lumbar epidural steroid injection today with fluoroscopic guidance. Risks were discussed including but not limited to: Bleeding, infection, possibility of epidural hematoma and subsequent neurological compromise, dural puncture, headaches, spinal cord and/or nerve damage, side effects of steroid medication, and poor results regarding pain control. Patient understands and wished to proceed. Patient will return to clinic in approximate 2 days for follow-up, as she has myofascial component of the pain as well and if necessary may explore trigger point injections as she did well with these previously as she is leaving town in 3 days. Patient was counseled as to return appointment activity level and side effects to be aware of. Medication Injected: Med Injected: Procedure is lumbar epidural steroid injection under local anesthetic using sterile prep and drape at the L4-5 level using C-arm fluoroscopic guidance in both AP and lateral views medications injected is 120 mg Depo-Medrol +10mL preservative-free normal saline and 2 mL contrast- condition at discharge is stable patient tolerated procedure well had no complications. Condition at Discharge: Condition at Discharge: Condition at discharge stable, patient alert procedure well and had no complications. JUSTINA TONG MD Jan 04, 2021 14:03
== END | disposition home or self-care (01) ==
LOC: PNCL 13:11
PROVIDERS: ATTEND Anesthesiology
DX: M51.16 Intervertebral disc disorders with radiculopathy, lumbar region (principal); M50.10 Cervical disc disorder with radiculopathy, unspecified cervical region; M79.18 Myalgia, other site; J45.909 Unspecified asthma, uncomplicated; E66.9 Obesity, unspecified; F41.9 Anxiety disorder, unspecified; F32.9 Major depressive disorder, single episode, unspecified; Z79.899 Other long term (current) drug therapy; Z98.890 Other specified postprocedural states; Z91.040 Latex allergy status; Z88.8 Allergy status to other drugs, medicaments and biological substances
CPT/HCPCS: 62323; J1030; J1040; Q9965

== ENCOUNTER → 2021-01-06 | Outpatient (CLI) | payer MEDICARE, OTHER ==
[2017-07-29 09:20] VITALS: BP 119/76
[~2021-01-06] MED LIST changes: +BUPIVACAINE MPF 0.25% 30 ML VIAL. ONE; -IOHEXOL 180 MG/ML 10 ML VIAL. ONE; -methylPREDNISolone ACETATE 80 MG/ML VIAL. ONE
--- NOTE | 2021-01-06 08:15 | PDOC ---
Progress Note - Pain Clinic Date of Service: DOS: DATE: 01/06/21 TIME: 08:10 Diagnosis: Dx: Cervical radiculopathy with cervical degenerative disc disease and cervical herniated disc Lumbar radiculopathy with lumbar degenerative disc disease Myofascial pain History or Present Illness: HPI: 50-year-old female returns follow-up status post lumbar epidural steroid injection with good results thus far patient had some trigger points we were working with the other day as well on her visit 2 days ago and those have not resolved significantly patient reports still pain in the low back and also in the bilateral shoulders right side of the low back more than the left into the right gluteus and into the right lateral and anterior quadriceps very firm ropelike muscular she is been trying to stretches out over the past few days without success in decreasing the pain. Patient has responded very well to trigger point injections however in these regions previously. Patient is getting ready to leave for about a 1 month trip should be driving and is try to get feeling better before she leaves in another day or so patient reports her pain is a 10 on scale 10 is worse over the past week 6 on average 5 its least is a 6 today patient reported aching tight stabbing radiating can be constant acro ss the low back and in the shoulders as well. Patient reports no new motor or sensory deficits the pain in the right leg is feeling better from the radiating radicular pain but the trigger point muscular pain is still persistent. Physical Exam: VS: Blood pressure 118/74 pulse 62 respirations 16 temperature 90.0 F height is 5 foot 8 inches weight is 186 pounds PE: PHYSICAL EXAMINATION: GENERAL: The patient is awake, alert, oriented, appropriate, very pleasant in demeanor HEENT: Shows normocephalic, atraumatic. Extraocular movements are intact and symmetrical. NECK: Shows anterior throat supple without palpable lymphadenopathy noted. Swallow reflex symmetrical. CHEST: Shows normal on inspection. Breath sounds are clear bilaterally. HEART: Shows S1, S2 clear. No murmurs auscultated. ABDOMEN: Soft, nontender, nondistended. No palpable organomegaly is noted. No rebound or guarding demonstrated. BACK: Shows spine grossly in the midline. Normal-appearing cervical lordotic curvature. Cervical spine shows full rotation motion both laterally as well as full extension full forward flexion without significant difficulty. Patient has significant tenderness in the inferior aspect of the cervical paraspinous posterior and into the superior medial trapezius bilaterally very firm ropelike musculature worse on the right than the left and present bilaterally very tender consistent with areas of trigger point musculature but without radiation. Right supraspinatus and infraspinatus shows significant tenderness and very firm ropelike musculature as well as the medial rhomboid on the right side but without radiation as well left side is nontender and without trigger points on the left. There is increased thoracic kyphosis, some flattening of the lumbar lordotic curvature. Lumbar paraspinous muscles show symmetrical on inspection, on palpation shows some moderate tenderness diffusely throughout the upper, middle and lower distribution of the paraspinous muscles bilaterally and also into the lower thoracic paraspinous musculature, with very firm ropelike musculature in the right sided mid and low lumbar distribution consistent with areas of trigger point musculature but without radiation of pain. The patient has good rotational motion of the lumbar spine, both laterally as well as extension and flexion without significant difficulty. No tenderness over the spinous processes, sacrum or sacroiliac regions. EXTREMITIES: Lower extremities show deep tendon reflexes 1+ in the patellar and tendo calcaneus tendons. Motor exam is 4 on a scale of 5 with right dorsiflexion, extension, quadriceps and hamstring flexion and 4/5 on the left. Peripheral pulses are 1+ posterior tibial. No peripheral edema is noted bilaterally. Lower extremities are warm and dry. Patient has significant tenderness over the superior aspect of the right quadriceps and the medial and lateral distribution with very firm ropelike musculature consistent with trigger point areas in the quadricep itself as well as into the right gluteus on the right only with very firm ropelike musculature consistent with trigger point areas but without specific radiation left side is nontender. SKIN: Shows warm and dry, good turgor. No edema. No sores, rashes or bruising throughout. Procedure: Procedure: Options discussed with the patient. Patient chart was reviewed as her current medication regimen updated current review of systems updated today as well. We will proceed with trigger point injections of the identified musculature. Risk were discussed including but not limited to bleeding infection possibility of intravascular injection and sequelae spread local anesthetic numbness pneumothorax side effects steroid medication and poor results regarding pain control. Patient understands wished to proceed. Patient return to the clinic in approximately 4 weeks for follow-up, was counseled as to return appointment activity level and side effects to be aware of. Medication Injected: Med Injected: Under sterile prep and drape patient in left lateral decubitus position trapezius musculature was sterilely prepped and draped as was the right rhomboid right supra and infraspinatus musculature right lumbar paraspinous musculature right gluteus musculature right quadriceps musculature and identified trigger points were injected using 25-gauge needle total of 12 cc 0.25% bupivacaine and total of 40 mg Depo-Medrol after negative aspiration at each injection site. Patient tolerated procedure well and had no complications. Condition at Discharge: Condition at Discharge: Condition at discharge is stable, patient alert the procedure well and had no complications. JUSTINA TONG MD Jan 06, 2021 08:15
--- NOTE | 2021-01-06 08:16 | PDOC4 ---
PROCEDURE Procedure Patient was consented for trigger point injections. Risk were discussed inc luding but not limited to bleeding infection possibility of intravascular injection sequelae pneumothorax side effects steroid medication, and poor results regarding pain control. Patient understands wished to proceed. Under sterile prep and drape patient in left lateral decubitus position trapezius musculature was sterilely prepped and draped as was the right rhomboid right supra and infraspinatus musculature right lumbar paraspinous musculature right gluteus musculature right quadriceps musculature and identified trigger points were injected using 25-gauge needle total of 12 cc 0.25% bupivacaine and total of 40 mg Depo-Medrol after negative aspiration at each injection site. Patient tolerated procedure well and had no complications. JUSTINA TONG MD Jan 06, 2021 08:16
== END | disposition home or self-care (01) ==
LOC: PNCL 07:41
PROVIDERS: ATTEND Anesthesiology
DX: M50.10 Cervical disc disorder with radiculopathy, unspecified cervical region (principal); M51.16 Intervertebral disc disorders with radiculopathy, lumbar region; M79.18 Myalgia, other site; J45.909 Unspecified asthma, uncomplicated; E66.9 Obesity, unspecified; F41.9 Anxiety disorder, unspecified; F32.9 Major depressive disorder, single episode, unspecified; Z90.710 Acquired absence of both cervix and uterus; Z98.890 Other specified postprocedural states; Z79.899 Other long term (current) drug therapy; Z91.040 Latex allergy status; Z88.8 Allergy status to other drugs, medicaments and biological substances
CPT/HCPCS: 20553; J1030; J3490

== ENCOUNTER → 2021-02-08 | Outpatient (CLI) | payer MEDICARE, OTHER ==
[2017-07-29 09:20] VITALS: BP 119/76
[~2021-02-08] MED LIST changes: +BUPIVACAINE MPF 0.25% 10 ML VIAL. ONE; -BUPIVACAINE MPF 0.25% 30 ML VIAL. ONE
--- NOTE | 2021-02-08 15:59 | PDOC ---
Progress Note - Pain Clinic Date of Service: DOS: DATE: 02/08/21 TIME: 15:53 Diagnosis: Dx: Lumbar radiculopathy with lumbar degenerative disc disease Cervical radiculopathy cervical degenerative disease and cervical herniated disc Myofascial pain History or Present Illness: HPI: 50-year-old female returns for follow-up status post trigger point injections as well as previous epidural steroid injections. Patient most recently had trigger point injections January 06, 2021 did very well reports about 90% improvement in the low back and right hip patient reports the pain is returning now after she fell down some stairs had a new injury while she was visiting her sister in [place]. Patient reports she fell down the last 2 or 3 stairs on her sister staircase with significant pain in the low back radiating now into the bilateral lower extremities worse on the right than the left but significant tightness and spastic musculature in the low back as well as into the hips and the bilateral lower extremities. Patient reports is aching and sharp tight shooting tingling burning cramping stabbing radiating can be constant severe and unbearable rated as a 10 on scale 10 is worse over the past week 7 on average for its least is a 7 today. Patient reports muscle spasms in the hips legs low back as well as into the right anterior quadriceps and some in the right calf as well. Patient reports no bowel or bladder incontinence no new motor or sensory loss. Physical Exam: VS: Blood pressure is 137/75 pulse 63 respirations are 18 temperature is 98.1 F height is 5 feet 8 inches weight is 198 pounds PE: PHYSICAL EXAMINATION: GENERAL: The patient is awake, alert, oriented, appropriate, [facility], patient accompanied by her daughter. HEENT: Shows normocephalic, atraumatic. Extraocular movements are intact and symmetrical. NECK: Shows anterior throat supple without palpable lymphadenopathy noted. Swallow reflex symmetrical. CHEST: Shows normal on inspection. Breath sounds are clear, no rales or rhonchi auscultated bilaterally. HEART: Shows S1, S2 clear. No murmurs auscultated. ABDOMEN: Soft, nontender, nondistended, obese. BACK: Shows spine grossly in the midline. Normal-appearing cervical lordotic curvature. There is slightly increased thoracic kyphosis, some minor flattening of the lumbar lordotic curvature. Lumbar paraspinous muscles show symmetrical on inspection, on palpation shows some moderate tenderness diffusely throughout the upper, middle and lower distribution of the paraspinous muscles. Patient has significant tenderness in the mid and low lumbar distribution the paraspinous muscles very firm ropelike musculature consistent with trigger point areas of musculature bilaterally without specific radiation. Patient also has significant tenderness over the superior medial and lateral gluteus near the posterior superior iliac spine and the lateral to this as well with very firm ropelike musculature bilaterally into the superior medial gluteus bilaterally with very firm ropelike musculature very tender with palpation without specific radiation on palpation. The patient has good rotational motion of the lumbar spine, both laterally as well as extension and flexion without significant difficulty. No tenderness over the spinous processes, sacrum or sacroiliac regions. EXTREMITIES: Lower extremities show deep tendon reflexes 2+ in the patellar and tendo calcaneus tendons. Motor exam is 4 on a scale of 5 with right dorsiflexion, extension, quadriceps and hamstring flexion and 4/5 on the left. Peripheral pulses are 1 posterior tibial. No peripheral edema is noted bilaterally. Lower extremities are warm and dry to touch, equal in color and appearance. Patient shows significant tenderness with palpation over the vastus medialis musculature in the mid and upper thighs bilaterally but without radiation but very firm ropelike muscular consistent with areas of trigger point musculature. This is doing the vastus lateralis as well more superiorly but bilaterally very firm ropelike muscular consistent with areas of trigger point musculature. Again no radiation is demonstrated. SKIN: Shows warm and dry, good turgor. No edema. No sores, rashes or bruising throughout. Procedure: Procedure: Options were discussed with the patient. Patient chart was reviewed as her current medication regimen updated current review of systems updated today as well. We will proceed with trigger point areas of the identified musculature. Risk were discussed including but not limited to bleeding infection possibility of intravascular injection and sequelae spread of local anesthetic numbness side effects of steroid education and poor response regarding pain control. Patient understands wished to proceed. Patient return to clinic in approximately 2 weeks for follow-up, was counseled as to return appointment activity level and side effects to be aware of. Medication Injected: Med Injected: Under sterile prep and drape patient's trigger point areas were identified in the bilateral lumbar paraspinous posterior, bilateral gluteus musculature, bilateral hamstring musculature, bilateral quadriceps musculature. Using 25- gauge needle and after negative aspiration each injection site total of 14 cc 0.25% bupivacaine was injected and total of 40 mg Depo-Medrol. Patient tolerated procedure well had no complications. Patient had some transient numbness over the top of the left foot immediately postoperative, which cleared prior to discharge. Condition at Discharge: Condition at Discharge: Condition discharge stable, patient alert the procedure well had no complications. JUSTINA TONG MD Feb 08, 2021 15:59
--- NOTE | 2021-02-08 16:02 | PDOC4 ---
Procedure Note: Procedure Note: Patient was consented for trigger point injections. Risk were discussed including but not limited to bleeding infection possibility of intravascular injection sequelae spread local episodic numbness side effects of steroid medication portals regarding pain control. Patient understands wished to proceed. Under sterile prep and drape patient in supine position initially and then prone position, trigger points were identified in the bilateral lumbar paraspinous posterior bilateral gluteus musculature bilateral quadriceps muscular and bilateral hamstring musculature. Using sterile prep and drape using 25-gauge needle total of 14 cc of 0.25% bupivacaine was injected after negative aspi ration and total of 40 mg Depo-Medrol. Patient tolerated procedure well and had no complications. JUSTINA TONG MD Feb 08, 2021 16:02
== END | disposition home or self-care (01) ==
LOC: PNCL 14:26
PROVIDERS: ATTEND Anesthesiology
DX: M51.16 Intervertebral disc disorders with radiculopathy, lumbar region (principal); M50.10 Cervical disc disorder with radiculopathy, unspecified cervical region; M79.18 Myalgia, other site; E66.9 Obesity, unspecified; F41.9 Anxiety disorder, unspecified; F32.9 Major depressive disorder, single episode, unspecified; Z90.710 Acquired absence of both cervix and uterus; Z98.890 Other specified postprocedural states; Z79.899 Other long term (current) drug therapy; Z91.040 Latex allergy status; Z88.8 Allergy status to other drugs, medicaments and biological substances
CPT/HCPCS: 20553; J1030; J3490

== ENCOUNTER → 2021-05-27 | Outpatient (CLI) | payer MEDICARE, OTHER ==
[2017-07-29 09:20] VITALS: BP 119/76
[~2021-05-27] MED LIST changes: -ALPR1TAB5 PO; +ALPR1TAB9 PO; -BUPIVACAINE MPF 0.25% 10 ML VIAL. ONE; +CYCL10TA19 PO; -CYCL10TA2 PO; -ESTR2TAB PO; +ESTR2TAB3 PO; +IOHEXOL 180 MG/ML 10 ML VIAL. ONE; +methylPREDNISolone ACETATE 80 MG/ML VIAL. ONE
--- NOTE | 2021-05-27 09:15 | PDOC ---
Progress Note - Pain Clinic Date of Service: DOS: DATE: 05/27/21 TIME: 09:11 Diagnosis: Dx: Cervical radiculopathy with cervical degenerative disease and cervical herniated disc Lumbar radiculopathy with lumbar degenerative disc disease Myofascial pain History or Present Illness: HPI: 51-year-old female returns for follow-up status post trigger point injections last seen January 2021. Patient reports she did very well with this with about 75% improvement but the main complaint today is pain in the low back and radiating down the right lower extremity posterior gluteus posterior lateral thigh lateral anterior thigh anteromedial thigh medial lower leg to the ankle and the foot on the right side with some weakness and fatigue with walking. Patient ports aching sharp dull tight shooting in the back cramping stabbing can be constant severe unbearable at times patient reports is worse with walking standing changing positions better with sitting or laying down generally does not awaken her from sleep but most recently it has over the past few weeks. Patient rates her pain is a 10 on scale 10 is worse over the past week 8-9 on average for its least is an 8 today. Patient reports no loss of motor function no bowel or bladder incontinence. Physical Exam: VS: Blood pressure is 164 pulse 69 respirations are 16 temperature is 97.6 F height is 5 foot 8 inches weight is 189 pounds PE: PHYSICAL EXAMINATION: GENERAL: The patient is awake, alert, oriented, appropriate, very pleasant in demeanor HEENT: Shows normocephalic, atraumatic. Extraocular movements are intact and symmetrical. Oral cavity: Mucous membranes moist and pink. Dentition is intact. NECK: Shows anterior throat supple without palpable lymphadenopathy noted. Swallow reflex symmetrical. CHEST: Shows normal on inspection. Breath sounds are clear bilaterally, distant but no rales or. HEART: Shows S1, S2 clear. No murmurs auscultated. ABDOMEN: Soft, nontender, nondistended, obese. No palpable organomegaly is noted. BACK: Shows spine grossly in the midline. Normal-appearing cervical lordotic curvature. There is slightly increased thoracic kyphosis, some minor flattening of the lumbar lordotic curvature. Lumbar paraspinous muscles show symmetrical on inspection, on palpation shows some moderate tenderness diffusely throughout the upper, middle and lower distribution of the paraspinous muscles, but without specific trigger points, without radiation of pain. The patient has good rotational motion of the lumbar spine, both laterally as well as extension and flexion without significant difficulty. EXTREMITIES: Lower extremities show deep tendon reflexes 2+ in the patellar and tendo calcaneus tendons. Motor exam is 4 on a scale of 5 with right dorsiflexion, extension, quadriceps and hamstring flexion and 4/5 on the left. Peripheral pulses are 1 posterior tibial. No peripheral edema is noted bilat erally. Lower extremities are warm and dry to touch, equal in color and appearance. SKIN: Shows warm and dry, good turgor. No edema. No sores, rashes or bruising throughout. Procedure: Procedure: Options were discussed with the patient. Patient chart reviews her current medication regimen updated current review of systems updated today as well. We will proceed with a lumbar epidural steroid injection today with fluoroscopic guidance. Risks were discussed including but not limited to: Bleeding, infection, possibility of epidural hematoma and subsequent neurological compromise, dural puncture, headaches, spinal cord and/or nerve damage, side effects of steroid medication, and poor results regarding pain control. Patient understands and wished to proceed. Patient return to clinic in approximate 2 weeks for follow-up, was counseled return appointment, typical, and side effects aware of. Medication Injected: Med Injected: Procedure is lumbar epidural steroid injection under local anesthetic using sterile prep and drape at the L4-5 level using C-arm fluoroscopic guidance in both AP and lateral views medications injected is 120 mg Depo-Medrol +10mL preservative-free normal saline and 2 mL contrast- condition at discharge is stable patient tolerated procedure well had no complications. Condition at Discharge: Condition at Discharge: Condition at discharge is stable, patient already procedure well had no complications. JUSTINA TONG MD May 27, 2021 09:14
--- NOTE | 2021-05-27 09:15 | PDOC4 ---
Procedure Note: ICD 10 Code: ICD 10 Code: M54.16 M51.36 Procedure Note: Patient was consented for lumbar epidural steroid injection with fluoroscopic guidance. Risks were discussed including but not limited to: Bleeding, infection, possibility of epidural hematoma and subsequent neurological compromise, dural puncture, headaches, spinal cord and/or nerve damage, side effects of steroid medication, and poor results regarding pain control. Patient understands and wished to proceed. Procedure is lumbar epidural steroid injection under local anesthetic using sterile prep and drape at the L4-5 level using C-arm fluoroscopic guidance in both AP and lateral views medications injected is 120 mg Depo-Medrol +10mL preservative-free normal saline and 2 mL contrast- condition at discharge is stable patient tolerated procedure well had no complications. JUSTINA TONG MD May 27, 2021 09:15
== END | disposition home or self-care (01) ==
LOC: PNCL 08:14
PROVIDERS: ATTEND Anesthesiology
DX: M51.16 Intervertebral disc disorders with radiculopathy, lumbar region (principal); M50.10 Cervical disc disorder with radiculopathy, unspecified cervical region; M79.18 Myalgia, other site; J45.909 Unspecified asthma, uncomplicated; E66.9 Obesity, unspecified; F41.9 Anxiety disorder, unspecified; F32.9 Major depressive disorder, single episode, unspecified; Z90.710 Acquired absence of both cervix and uterus; Z98.890 Other specified postprocedural states; Z79.899 Other long term (current) drug therapy; Z91.040 Latex allergy status; Z88.8 Allergy status to other drugs, medicaments and biological substances
CPT/HCPCS: 62323; J1030; J1040; Q9965

== ENCOUNTER → 2021-06-10 | Outpatient (CLI) | payer MEDICARE, OTHER ==
[2017-07-29 09:20] VITALS: BP 119/76
--- NOTE | 2021-06-10 11:00 | PDOC ---
Progress Note - Pain Clinic Date of Service: DOS: DATE: 06/10/21 TIME: 10:57 Diagnosis: Dx: Lumbar radiculopathy with lumbar degenerative disc disease Cervical radiculopathy with cervical degenerative disc disease and cervical herniated disc Myofascial pain History or Present Illness: HPI: 51-year-old female returns for follow-up status post lumbar epidural steroid injection with approximately 2% improvement right hip and right lower extremity patient reports that she is increasing her activity greater ease and comfort wa lking greater distances as well as doing household activities travel with greater ease and comfort as well. Patient reports is beginning to return down the low back and right lower extremity posterior gluteus lateral thigh anterior thigh medial thigh medial lower leg also some pain in the neck and upper back patient reports the hip is most painful with walking standing with radiating pain into the leg as noted patient reports aching sharp tight shooting in the back and shooting the leg cramping stabbing severe and constant can be unbearable with extended walking patient reports for the first 2 weeks or so pain was much reduced as well patient reports he been sleeping better at night also. Patient reports her pain is a 9 on scale 10 is worse over the past week 5 on average 3 at its least is a 5 today. Patient reports no bowel or bladder problems. Physical Exam: VS: Blood pressure is 114/79 pulse 67 respirations 16 temperature is 97.9 F height is 5 foot 7 inches weight is 186 pounds PE: PHYSICAL EXAMINATION: GENERAL: The patient is awake, alert, oriented, appropriate, very pleasant in demeanor HEENT: Shows normocephalic, atraumatic. Extraocular movements are intact and symmetrical. Oral cavity: Mucous membranes moist and pink. Dentition is intact. NECK: Shows anterior throat supple without palpable lymphadenopathy noted. Sw allow reflex symmetrical. CHEST: Shows normal on inspection. Breath sounds are clear bilaterally. HEART: Shows S1, S2 clear. No murmurs auscultated. ABDOMEN: Soft, nontender, nondistended, obese. No palpable organomegaly is noted. BACK: Shows spine grossly in the midline. Normal-appearing cervical lordotic curvature. There is slightly increased thoracic kyphosis, some flattening of the lumbar lordotic curvature. Lumbar paraspinous muscles show symmetrical on inspection, on palpation shows some moderate tenderness diffusely throughout the upper, middle and lower distribution of the paraspinous muscles, but without specific trigger points, without radiation of pain. The patient has good rotational motion of the lumbar spine, both laterally as well as extension and flexion without significant difficulty. No tenderness over the spinous processes, sacrum or sacroiliac regions. EXTREMITIES: Lower extremities show deep tendon reflexes deep in the patellar and tendo calcaneus tendons. Motor exam is 4 on a scale of 5 with right dorsiflexion, extension, quadriceps and hamstring flexion and 4/5 on the left. Peripheral pulses are 1+ posterior tibial. No peripheral edema is noted bilaterally. Lower extremities are warm and dry. SKIN: Shows warm and dry, good turgor. No edema. No sores, rashes or bruising throughout. Procedure: Procedure: Options were discussed with the patient. Patient chart reviews her current medication regimen updated current review of systems updated today as well. We will proceed with a lumbar epidural steroid injection today with fluoroscopic guidance. Risks were discussed including but not limited to: Bleeding, infection, possibility of epidural hematoma and subsequent neurological compromise, dural puncture, headaches, spinal cord and/or nerve damage, side effects of steroid medication, and poor results regarding pain control. Patient understands and wished to proceed. Patient will return to clinic in approximate 2 weeks for follow-up, was counseled as return appointment, activity level, and side effect to be aware of. Medication Injected: Med Injected: Procedure is lumbar epidural steroid injection under local anesthetic using sterile prep and drape at the L4-5 level using C-arm fluoroscopic guidance in both AP and lateral views medications injected is 120 mg Depo-Medrol +10mL preservative-free normal saline and 2 mL contrast- condition at discharge is stable patient tolerated procedure well had no complications. Condition at Discharge: Condition at Discharge: Condition at discharge is stable, patient tolerated procedure well and had no complications. JUSTINA TONG MD Jun 10, 2021 11:00
--- NOTE | 2021-06-10 11:01 | PDOC4 ---
Procedure Note: ICD 10 Code: ICD 10 Code: M54.16 M51.36 Procedure Note: Patient was consented for lumbar epidural steroid injection with fluoroscopic guidance. Risks were discussed including but not limited to: Bleeding, infection, possibility of epidural hematoma and subsequent neurological compromise, dural puncture, headaches, spinal cord and/or nerve damage, side effects of steroid medication, and poor results regarding pain control. Patient understands and wished to proceed. Procedure is lumbar epidural steroid injection under local anesthetic using sterile prep and drape at the L4-5 level using C-arm fluoroscopic guidance in both AP and lateral views medications injected is 120 mg Depo-Medrol +10mL preservative-free normal saline and 2 mL contrast- condition at discharge is stable patient tolerated procedure well had no complications. JUSTINA TONG MD Jun 10, 2021 11:01
== END | disposition home or self-care (01) ==
LOC: PNCL 10:14
PROVIDERS: ATTEND Anesthesiology
DX: M51.16 Intervertebral disc disorders with radiculopathy, lumbar region (principal); M50.10 Cervical disc disorder with radiculopathy, unspecified cervical region; M79.18 Myalgia, other site; J45.909 Unspecified asthma, uncomplicated; E66.9 Obesity, unspecified; F41.9 Anxiety disorder, unspecified; F32.9 Major depressive disorder, single episode, unspecified; Z90.710 Acquired absence of both cervix and uterus; Z98.890 Other specified postprocedural states; Z79.899 Other long term (current) drug therapy; Z91.040 Latex allergy status; Z88.8 Allergy status to other drugs, medicaments and biological substances
CPT/HCPCS: 62323; J1030; J1040; Q9965